=== PATIENT | male | born 1960 | race Caucasian/White ===

== ENCOUNTER 2021-05-12 03:53 | Emergency (ER) | payer OTHER, SELFPAY ==
[2021-05-12 03:58] VITALS: BP 139/83; PULSE 74; RESP 18; TEMP 36.3; O2SAT 99
--- NOTE | 2021-05-12 04:49 | ED.GENADULT ---
HPI - General Adult General Chief complaint: Skin/Abscess/Foreign Body Stated complaint: right finger insect bite Time Seen by Provider: 05/12/21 04:49 History of Present Illness HPI narrative: Patient 60-year-old gentleman who presents the emergency department chief complaint of insect bite to right middle finger. Patient reports he was outside working in the yard felt something land on his finger and sticking his finger. Patient reports he had several small bumps that appeared reports that they are itching terribly and noticed that he has redness on the volar aspect of his right middle finger. Patient states it hurts whenever he moves it reports improved with rest patient states that has had no purulent drainage from the area noticed has had several other spots on his body that are as though they are a welt and itching. Related Data Allergies Allergy/AdvReac Type Severity Reaction Status Date / Time No Known Allergies Allergy Verified 05/12/21 04:02 Review of Systems Review of Systems: A 10 system review of systems was completed on the patient and is negative except for what is stated in the HPI. Nursing and ancillary documentation was reviewed. [facility] Past Medical History Medical History BPH (benign prostatic hyperplasia) Erectile dysfunction HLD (hyperlipidemia) HTN (hypertension) IFG (impaired fasting glucose) Family History Family History Father Family history of alcoholism Other Hypertension Social History Social History Smoking status: Former smoker Tobacco type: cigarettes Second hand tobacco smoke exposure: No Smoking end date: 10/11/02 Alcohol intake: current Substance use: never Substance use type: does not use Gender identity (if verbalized by the patient): Male Exam Narrative: GENERAL: Well-appearing, well-nourished, and in no acute distress. HEAD: Normocephalic, atraumatic. EYES: PERRLA and EOMI. ENT: Nares clear, no rhinorrhea or epistaxis. Mucous membranes moist. NECK: Supple. CHEST: Clear to auscultation. No respiratory distress. HEART: Regular rate and rhythm. No murmur heard. Normal peripheral pulses. ABDOMEN: Soft, nontender, nondistended, normal active bowel sounds. EXTREMITIES: Normal range of motion. No edema. There is swelling present on the volar aspect of the right middle finger in the proximal phalanx there are several small red bumps there are patches of urticaria present on the volar aspect of the right forearm SKIN: Warm, dry, no rash. NEURO: No focal deficits. Alert and oriented x3. PSYCH: Normal mood and affect. Course Vital Signs Vital signs: Vital Signs Temperature 36.3 C L 05/12/21 03:58 Pulse Rate 74 05/12/21 03:58 Respiratory Rate 18 05/12/21 03:58 Blood Pressure 139/83 05/12/21 03:58 Pulse Oximetry 99 05/12/21 03:58 Temperature 36.3 C L 05/12/21 03:58 Pulse Rate 74 05/12/21 03:58 Respiratory Rate 18 05/12/21 03:58 Blood Pressure 139/83 05/12/21 03:58 Pulse Oximetry 99 05/12/21 03:58 Medical Decision Making Vital Signs Vital Signs: Vital Signs Temperature 36.3 C L 05/12/21 03:58 Pulse Rate 74 05/12/21 03:58 Respiratory Rate 18 05/12/21 03:58 Blood Pressure 139/83 05/12/21 03:58 Pulse Oximetry 99 05/12/21 03:58 Temperature 36.3 C L 05/12/21 03:58 Pulse Rate 74 05/12/21 03:58 Respiratory Rate 18 05/12/21 03:58 Blood Pressure 139/83 05/12/21 03:58 Pulse Oximetry 99 05/12/21 03:58 Discharge Plan Discharge Clinical Impression: Insect bite Qualifiers: Encounter type: initial encounter Site of insect bite: finger Finger: middle finger Laterality: right Qualified Code(s): S60.462A - Insect bite (nonvenomous) of right middle finger, initial encounter Allergic reaction Qualifiers:
[2021-05-12] MEDS: methylPREDNISolone SOD SUCC 125 MG VIAL IM (05:14)
[2021-05-12] MEDS: CLINDAMYCIN HCL 150 MG CAP 300 MG PO (05:14)
[2021-05-12] MEDS: diphenhydrAMINE HCl INJ 50 MG/ML VIAL 25 MG IM (05:14)
[2021-05-12] MEDS: FAMOTIDINE 20 MG TABLET PO (05:14)
== END 2021-05-12 05:25 | disposition home or self-care (01) ==
PROVIDERS: Emergency Provider Emergency Medicine; PCP Family Medicine
DX: S60.462A Insect bite (nonvenomous) of right middle finger, initial encounter (principal); T78.40XA Allergy, unspecified, initial encounter; N40.0 Benign prostatic hyperplasia without lower urinary tract symptoms; E78.5 Hyperlipidemia, unspecified; I10 Essential (primary) hypertension; Z87.891 Personal history of nicotine dependence; W57.XXXA Bitten or stung by nonvenomous insect and other nonvenomous arthropods, initial encounter
CPT/HCPCS: 96372; 99284; A9270; J1200; J2930

== ENCOUNTER → 2022-07-10 10:52 | Outpatient (CLI) | payer OTHER, SELFPAY ==
--- NOTE | ~2022-07-10 | XR_ITS ---
EXAMINATION: XR heel RT min 2V INDICATION: Right foot pain TECHNIQUE: Two views of the right heel are obtained. COMPARISON: None available FINDINGS: Bone alignment is normal. There is no fracture. A plantar calcaneal enthesophyte is noted. There is mild osteoarthritis of the midfoot. IMPRESSION: 1. No acute osseous abnormality. Reviewed, dictated and finalized at location A.
--- NOTE | ~2022-07-10 | XR_ITS ---
EXAMINATION: XR foot RT min 3V DATE: 07/10/2022 11:27 INDICATION: Right foot pain TECHNIQUE: Dorsoplantar, lateral, and 2 oblique views of the right foot were obtained. COMPARISON: None. FINDINGS: Bone alignment is normal. There is no fracture. There is mild osteoarthritis of the midfoot and multiple interphalangeal joints. A plantar calcaneal enthesophyte is noted. The soft tissues are unremarkable.. IMPRESSION: 1. No acute osseous abnormality. Reviewed, dictated and finalized at location A.
--- NOTE | ~2022-07-10 | XR_ITS ---
XR knee LT 3V 07/10/2022 11:27 Indication: Right knee pain Procedure: 3 views right knee Comparison: No prior studies for comparison. Findings: No fracture, subluxation or dislocation. No significant joint effusion. No erosive changes. No significant joint space narrowing. There is anatomic alignment. Impression: 1: No significant bone or joint abnormality. Reviewed, dictated and finalized at location B. Impression: 1: No significant bone or joint abnormality.
--- NOTE | ~2022-07-10 | XR_ITS ---
XR knee RT 3V 07/10/2022 11:27 Indication: Right knee pain Procedure: 3 views right knee Comparison: No prior studies for comparison. Findings: There is tricompartment osteoarthritis, most advanced in the medial joint space. No fractur e or traumatic malalignment. Small joint effusion. No foreign bodies. Impression: 1: Tricompartment compartment osteoarthritis, most advanced in the medial compartment. Reviewed, dictated and finalized at location B. Impression: 1: Tricompartment compartment osteoarthritis, most advanced in the medial grey rtment.
== END ==
PROVIDERS: PCP Family Medicine; Visit Provider Physician Assistant
DX: M79.671 Pain in right foot (principal); M25.562 Pain in left knee; M25.561 Pain in right knee; M17.11 Unilateral primary osteoarthritis, right knee
CPT/HCPCS: 73562; 73630; 73650

== ENCOUNTER 2022-12-04 11:00 | Outpatient (RCR) | payer OTHER, SELFPAY ==
--- NOTE | 2022-11-05 18:00 | PTOPEVAL1 ---
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 The knee has cause him to have severe pain along with it giving out on him and causing multiple falls the last time 2 weeks ago. He has received injections and has had recommendations from orthopedic doctors for a replacement, but reports he does not want to do that at this time. Main issues are walking and stairs. The foot he figures is just from compensating for the knee. Clinical Summary Dariel is a 62 year old male coming into the clinic for R knee and foot pain. Patient has S/S of DJD of the R knee including decreased weakness in the quads and range of motion. Patient also has S/S of plantar fascitis of the R foot and weakness in his hips. Recommend physical therapy to strengthen his VIN hips, R knee along with manual therapy and modalities to work on pain control and the R foot. These treatments will address the objective and functional deficits as defined above. The patient will be advanced safely and appropriately in order for the patient to progress towards his/her prior level of function. Additional exercises will be introduced and as well as a comprehensive home exercise program upon discharge, if needed, ?to ensure carryover of functional gains achieved in the clinic. This treatment plan has been reviewed and agreement upon by the patient.
--- NOTE | 2022-12-04 11:41 | PTOPDC ---
Assessment and note entered by Shivam Ramirez, PT Evaluation Information Assessment Status Discharge Diagnosis Pain in R knee and R foot Onset Chronic Subjective Information Patient reports that the pain will diminish for about an hour after therapy, but then once the foot and knee stiffen up again he will be in pain. He feels like he has given therapy a shot and that the issue is chronic and that will not be solved by therapy. Reported Pain Level Pain Score 8,8: Self Report Assessment PT Clinical Summary Dariel is a 62 year old male coming into the [facility] for R knee and foot pain. Patient attended 6 visits and met his R quad strength, but otherwise did not meet any other goals. At this time recommend discontinuation of skilled physical therapy secondary to no decrease in pain and musculoskeletal seem chronic in nature where physical therapy probably would not be able to significantly change that. Plan of Care PT Services Indicated No Treatment Frequency and discharged from skilled physical therapy Duration
== END 2022-12-04 12:55 | disposition home or self-care (01) ==
LOC: ANHPT 11:00
PROVIDERS: PCP Family Medicine; Visit Provider Physician Assistant
DX: M25.561 Pain in right knee (principal); M79.671 Pain in right foot
CPT/HCPCS: 97035; 97110; 97140; 97161

== ENCOUNTER 2024-11-21 13:15 | Emergency (ER) | payer OTHER, SELFPAY ==
[2024-11-21] VITALS (10 sets, daily range): BP systolic 102–132; BP diastolic 48–93; PULSE 80–100; RESP 16–25; TEMP 37.3–37.9; O2SAT 93–98
--- NOTE | ~2024-11-21 | XR_ITS ---
EXAMINATION: XR chest 2V DATE: 11/21/2024 13:43 INDICATION: Chest pain. TECHNIQUE: Frontal and lateral views of the chest were obtained. COMPARISON: Chest single view 04/15/2015, CT abdomen and pelvis 04/15/2015 FINDINGS: There are airspace opacities in right middle lobe and left upper lobe, consistent with pneu monia. No pleural effusion or pneumothorax. The heart size is normal. IMPRESSION: 1. Airspace opacities in right middle lobe and left upper lobe, consistent with pneumonia. Reviewed, dictated and finalized at location A. S AND DIAL INSPECTOR
--- NOTE | 2024-11-21 13:17 | ECG_ITS ---
Test Date: 2024-11-21 13:21:33 Measurements Intervals [place] Rate: 100 P: 21 CA: 167 QRS: -29 QRSD: 99 T: 55 QT: 346 QTc: 447 Interpretive Statements SINUS TACHYCARDIA WITH SINUS ARRHYTHMIA INCOMPLETE RIGHT BUNDLE BRANCH BLOCK BORDERLINE R WAVE PROGRESSION, ANTERIOR LEADS BASELINE ARTIFACT- I, II, III, AVR, AVL, V1-V3, V5-V6 ABNORMAL ECG No previous ECG available for comparison Electronically Signed On 11-21-2024 13:29:39 [employer] SERVIC[employer] by Neptali Perez D.O.
[2024-11-21 13:36] LABS: Basophils Percent Auto 0.1 % (0.2-1.2); Hematocrit 48.4 % (42.0-52.0); Immature Granulocyte Absolute 0.05 K/mm3 (0.00-0.031); Immature Granulocyte Percent A 0.4 % (0-0.5); Lymphocytes Absolute Auto 0.36 K/mm3 (0.9-3.2); Lymphocytes Percent Auto 2.6 % (18.3-44.2); Mean Corpuscular HGB Conc 33.1 g/dl (32-36); Mean Corpuscular Hemoglobin 28.4 pg (26-34); Mean Corpuscular Volume 85.8 fl (80-100); Mean Platelet Volume 9.7 fl (7.4-10.4); Monocytes Absolute Auto 0.5 K/mm3 (0.1-0.6); Monocytes Percent Auto 3.6 % (2.6-8.5); Neutrophils Absolute Auto 12.8 K/mm3 (1.3-6.7); Neutrophils Percent Auto 93.3 % (45.5-73.1); Platelet Count Result 176 k/mm3 (150-375); Red Blood Count 5.64 M/mm3 (4.6-6.20); Red Cell Distribution Width 13.4 % (11.5-14.5); White Blood Count 13.8 K/mm3 (4.5-10.0)
[2024-11-21 13:47] LABS: Prothrombin Time 13.3 Seconds (11.1-14.7)
[2024-11-21 13:48] LABS: Partial Thromboplastin Time 29.7 Seconds (22.3-36.8)
[2024-11-21 13:49] LABS: Alanine Aminotransferase 21 U/L (6-50); Alkaline Phosphatase 74 U/L (38-126); Anion Gap 15 mmol/L (4-12); Aspartate Amino Transferase 24 U/L (17-59); Bilirubin,Total 0.8 mg/dL (0.2-1.3); Blood Urea Nitrogen 14 mg/dL (9-20); Calcium 8.2 mg/dL (8.4-10.2); Carbon Dioxide 18 mmol/L (22-30); Chloride 101 mmol/L (98-107); Estimated CRCL calculation 143 ml/min; Estimated Glomerular Filt Rate > 60; Glucose 148 mg/dL (65-110); Lipase 27 U/L (23-300); Potassium 3.8 mmol/L (3.4-5.0); Sodium 134 mmol/L (137-145)
[2024-11-21 13:59] LABS: Troponin I 0.019 ng/mL (0.000-0.034)
--- NOTE | 2024-11-21 15:54 | ED.CHESTPAIN ---
HPI - Chest Pain General Chief Complaint: Chest Pain <Danielle Miguel PA-C - Last Filed: 11/21/24 16:08> Stated Complaint: chest pain/dyspnea, N/V/D <Danielle Miguel PA-C - Last Filed: 11/21/24 16:08> Time Seen by Provider: 11/21/24 15:54 <Danielle Miguel PA-C - Last Filed: 11/21/24 16:08> Focused HPI: Patient is a 64 y/o male, with PMH of HTN, who presents to the ED via EMS with c/o CP. Patient reports he has been sick for the past 1 week with productive cough with dark brown phlegm, chest congestion. Reports nausea with decreased PO intake for the past 3 days. Developed L sided CP this morning. Worse with movement/exertion. Associated with SOB. EMS was called. Was given fentanyl en route to the ED by EMS with improvement of CP. States it is beginning to return. Denies previous hx of cardiac issues. Denies known fevers. GENERAL: Well-appearing, morbidly obese with BMI of 46.6, and in no acute distress. HEAD: Normocephalic, atraumatic. CHEST: No respiratory distress. Rhonchi in bases bilaterally. No wheezing HEART: Regular rate and rhythm.? NEURO: ?Alert and oriented x3. Patient screened in triage and initial orders placed.? ?Additional care and disposition to be based upon?diagnostic testing and treatment. <Danielle Miguel PA-C - Last Filed: 11/21/24 16:08> Source: patient <Danielle Miguel PA-C - Last Filed: 11/21/24 16:08> Mode of arrival: EMS <Danielle Miguel PA-C - Last Filed: 11/21/24 16:08> Limitations: no limitations <COBY Mcclure Last Filed: 11/21/24 16:08> History of Present Illness HPI narrative: Agree with the HPI as described above. <Yariel Yi MD - Last Filed: 11/21/24 20:16> Related Data Allergies/Adverse Reactions: Allergies Allergy/AdvReac Type Severity Reaction Status Date / Time [id number] Reductase AdvReac Mild body aches Verified 10/24/24 08:52 Inhibitor <Danielle Miguel PA-C - Last Filed: 11/21/24 16:08> Review of Systems Review of Systems: As reviewed above in HPI <Yariel Yi MD - Last Filed: 11/21/24 20:16> [facility] Past Medical History Medical History: Medical History Anxiety Left knee DJD Right knee DJD BPH (benign prostatic hyperplasia) Erectile dysfunction IFG (impaired fasting glucose) HLD (hyperlipidemia) HTN (hypertension) <Danielle Miguel PA-C - Last Filed: 11/21/24 16:08> Surgical History Surgical History: Surgical History H/O: vasectomy H/O shoulder surgery <Danielle Miguel PA-C - Last Filed: 11/21/24 16:08> Family History Family History: Family History Father Family history of alcoholism Unknown Arthritis Lupus Cerebrovascular accident Other Hypertension <COBY Mcclure Last Filed: 11/21/24 16:08> Social History Social History: Social History Social History: Spouse Smoking status: Current every day smoker Tobacco type: cigarettes and cigars Second hand tobacco smoke exposure: No Smoking end date: 10/11/02 Alcohol intake: current Alcohol use details: Rarely Substance use: never Substance use type: does not use Do You Feel Safe in your Home?: Yes Lack of Transportation: No Lack of Food: Never True Current Housing: I Have Housing Concerned About Future Housing: No Difficulty Paying Gas/Electric Bills: No Difficulty Paying for Meds: No Currently Unemployed: No Education: Decline to Answer Difficulty w/ Childcare or Family Care: No Living arrangements: with family Occupation/Education: occupation 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 HEAD: [Normocephalic, atraumatic.] EYES: [PERRLA and EOMI.] ENT: Nares clear, no rhinorrhea or epistaxis. Mucous membranes moist. NECK: Supple. CHEST: Coarse rhonchorous bibasilar breath sounds without any wheezing or respiratory distress. HEART: [Regular rate and rhythm]. No murmur heard. [Normal peripheral pulses.] ABDOMEN: [Soft, nondistended], [nontender], [No rigidity or guarding] EXTREMITIES: Normal range of motion. [No edema.] SKIN: Warm, dry, no rash. NEURO: [No focal deficits]. Alert and oriented [x3.] PSYCH: [Normal mood and affect.] <Yariel Yi MD - Last Filed: 11/21/24 20:16> Course Vital Signs Vital signs: Vital Signs Temperature 37.9 C H 11/21/24 13:14 Pulse Rate 100 11/21/24 13:14 Respiratory Rate 20 11/21/24 13:14 Blood Pressure 103/55 L 11/21/24 13:14 Pulse Oximetry 93 11/21/24 13:14 Oxygen Delivery Room Air 11/21/24 13:14 Temperature 37.3 C 11/21/24 20:09 Pulse Rate 87 11/21/24 20:02 Respiratory Rate 16 11/21/24 20:02 Blood Pressure 102/68 11/21/24 20:02 Pulse Oximetry 94 11/21/24 20:02 Oxygen Delivery Room Air 11/21/24 18:01 <Danielle Miguel PA-C - Last Filed: 11/21/24 16:08> Vital Signs Temperature 37.9 C H 11/21/24 13:14 Pulse Rate 100 11/21/24 13:14 Respiratory Rate 20 11/21/24 13:14 Blood Pressure 103/55 L 11/21/24 13:14 Pulse Oximetry 93 11/21/24 13:14 Oxygen Delivery Room Air 11/21/24 13:14 Temperature 37.3 C 11/21/24 20:09 Pulse Rate 87 11/21/24 20:02 Respiratory Rate 16 11/21/24 20:02 Blood Pressure 102/68 11/21/24 20:02 Pulse Oximetry 94 11/21/24 20:02 Oxygen Delivery Room Air 11/21/24 18:01 <Yariel Yi MD - Last Filed: 11/21/24 20:16> MDM - Chest Pain MDM Narrative Medical decision making narrative: MSE by HERNANDO in triage. <Danielle Miguel PA-C - Last Filed: 11/21/24 16:08> MSE by HERNANDO in triage. 64-year-old pleasant male presenting to the emergency room with chief complaint of chest pain shortness a breath as well as productive cough. Was otherwise in his normal state of health previous to last week it does have sick contacts at home. He has coarse rhonchorous breath sounds bilaterally, no wheezing or respiratory distress. Borderline febrile with a temperature 37.9? in triage but saturating well on room air without any tachycardia or blood pressure elevation. Cardiac workup was ordered given his age and risk factors with morbid obesity. Considerations presently are for upper respiratory infection, pneumonia, pleurisy, bronchitis, ACS, pneumothorax, musculoskeletal chest pain. Workup ordered including serial troponin, EKG, chest x-ray, PT, PTT, D-dimer. COVID swabs were obtained and he was given Tylenol for his borderline fever as well as Zofran and fluid bolus. Workup shows a leukocytosis of 13.8, normal hemoglobin, normal platelets. Electrolytes are largely within normal limits, normal renal function, normal glucose and hepatic function panel. Mildly elevated BNP of 492, troponin negative x2. Negative lipase. Negative viral panel. Chest x-ray shows airspace opacities in the right middle lobe and left upper lobe consistent with pneumonia. Patient was started on community-acquired coverage including Rocephin and doxycycline will be able to be sent home with prescriptions for doxycycline and Augmentin for dual coverage. D-dimer came back slightly elevated 0.88 however negative per years criteria does not need CT angiography especially with the better explanation being his and multifocal pneumonia evident on x-ray. Patient was frequent re-evaluated, resting comfortably without any tachycardia or hypoxia. Avoid was diagnosis with multifocal pneumonia and overall is safe and stable for discharge home given his well appearance, no oxygen requirements and will trial oral antibiotic therapy with outpatient follow-up closely. Patient comfortable with this plan of care and was stable for discharge. <Yariel Yi MD - Last Filed: 11/21/24 20:16> Medical Records Data Attestation: I reviewed the patient's medical records. <Yariel Yi MD - Last Filed: 11/21/24 20:16> Lab Data Attestation: I reviewed the patient's lab results. <Yariel Yi MD - Last Filed: 11/21/24 20:16> Result diagrams: 11/21/24 13:27 11/21/24 13:27 <Danielle Miguel PA-C - Last Filed: 11/21/24 16:08> Labs: Lab Results 11/21/24 11/21/24 11/21/24 Range/Units 13:27 16:07 18:13 WBC 13.8 H (4.5-10.0) K/mm3 RBC 5.64 (4.6-6.20) M/mm3 Hgb 16.0 (14.0-18.0) g/dL Hct 48.4 (42.0-52.0) % MCV 85.8 (80-100) fl MCH 28.4 (26-34) pg MCHC 33.1 (32-36) g/dl RDW 13.4 (11.5-14.5) % Plt Count 176 (150-375) k/mm3 MPV 9.7 (7.4-10.4) fl Immature Gran % (Auto) 0.4 (0-0.5) % Neut % (Auto) 93.3 H (45.5-73.1) % Lymph % (Auto) 2.6 L (18.3-44.2) % [place] % (Auto) 3.6 (2.6-8.5) % Eos % (Auto) 0.0 (0-4.4) % Baso % (Auto) 0.1 L (0.2-1.2) % Lymph # (Auto) 0.36 L (0.9-3.2) K/mm3 [place] # (Auto) 0.5 (0.1-0.6) K/mm3 Eos # (Auto) 0.0 (0-0.3) K/mm3 Baso # (Auto) 0.0 (0.0-0.1) K/mm3 Abs Immat Gran (auto) 0.05 H (0.00-0.031) K/mm3 Absolute Neuts (auto) 12.8 H (1.3-6.7) K/mm3 Absolute Nucleated RBC 0.000 (0.0-0.012) K/mm3 Nucleated RBC % 0.0 (0.0-0.2) % PT 13.3 (11.1-14.7) Seconds INR 1.0 APTT 29.7 (22.3-36.8) Seconds D-Dimer 0.88 H (<0.48) ug/mL Sodium 134 L (137-145) mmol/L Potassium 3.8 (3.4-5.0) mmol/L Chloride 101 (98-107) mmol/L Carbon Dioxide 18 L (22-30) mmol/L Anion Gap 15 H (4-12) mmol/L BUN 14 (9-20) mg/dL Creatinine 0.66 L (0.7-1.3) mg/dL Estim Creat Clear Calc 143 ml/min Estimated GFR > 60 (59 - ) Glucose 148 H (65-110) mg/dL Calcium 8.2 L (8.4-10.2) mg/dL Total Bilirubin 0.8 (0.2-1.3) mg/dL AST 24 (17-59) U/L ALT 21 (6-50) U/L Alkaline Phosphatase 74 (38-126) U/L Troponin I 0.019 0.020 (0.000-0.034) ng/mL NT-Pro-B Natriuret Pep 492 H (19.9-100) pg/mL Total Protein 7.0 (6.3-8.2) g/dL Albumin 4.0 (3.5-5.1) g/dL Lipase 27 (23-300) U/L Influenza A (RT-PCR) Negative (Negative) Influenza B (RT-PCR) Negative (Negative) RSV (RT-PCR) Negative (Negative) SARS-CoV-2 RNA (RT-PCR) Negative (Negative) 02/11/25 Range/Units 19:15 WBC (4.5-10.0) K/mm3 RBC (4.6-6.20) M/mm3 Hgb (14.0-18.0) g/dL Hct (42.0-52.0) % MCV (80-100) fl MCH (26-34) pg MCHC (32-36) g/dl RDW (11.5-14.5) % Plt Count (150-375) k/mm3 MPV (7.4-10.4) fl Immature Gran % (Auto) (0-0.5) % Neut % (Auto) (45.5-73.1) % Lymph % (Auto) (18.3-44.2) % [place] % (Auto) (2.6-8.5) % Eos % (Auto) (0-4.4) % Baso % (Auto) (0.2-1.2) % Lymph # (Auto) (0.9-3.2) K/mm3 [place] # (Auto) (0.1-0.6) K/mm3 Eos # (Auto) (0-0.3) K/mm3 Baso # (Auto) (0.0-0.1) K/mm3 Abs Immat Gran (auto) (0.00-0.031) K/mm3 Absolute Neuts (auto) (1.3-6.7) K/mm3 Absolute Nucleated RBC (0.0-0.012) K/mm3 Nucleated RBC % (0.0-0.2) % PT (11.1-14.7) Seconds INR APTT (22.3-36.8) Seconds D-Dimer (<0.48) ug/mL Sodium (137-145) mmol/L Potassium (3.4-5.0) mmol/L Chloride (98-107) mmol/L Carbon Dioxide (22-30) mmol/L Anion Gap (4-12) mmol/L BUN (9-20) mg/dL Creatinine (0.7-1.3) mg/dL Estim Creat Clear Calc ml/min Estimated GFR (59 - ) Glucose (65-110) mg/dL Calcium (8.4-10.2) mg/dL Total Bilirubin (0.2-1.3) mg/dL AST (17-59) U/L ALT (6-50) U/L Alkaline Phosphatase (38-126) U/L Troponin I 0.019 (0.000-0.034) ng/mL NT-Pro-B Natriuret Pep (19.9-100) pg/mL Total Protein (6.3-8.2) g/dL Albumin (3.5-5.1) g/dL Lipase (23-300) U/L Influenza A (RT-PCR) (Negative) Influenza B (RT-PCR) (Negative) RSV (RT-PCR) (Negative) SARS-CoV-2 RNA (RT-PCR) (Negative) <Danielle Miguel PA-C - Last Filed: 11/21/24 16:08> Lab Results 11/21/24 11/21/24 11/21/24 Range/Units 13:27 16:07 18:13 WBC 13.8 H (4.5-10.0) K/mm3 RBC 5.64 (4.6-6.20) M/mm3 Hgb 16.0 (14.0-18.0) g/dL Hct 48.4 (42.0-52.0) % MCV 85.8 (80-100) fl MCH 28.4 (26-34) pg MCHC 33.1 (32-36) g/dl RDW 13.4 (11.5-14.5) % Plt Count 176 (150-375) k/mm3 MPV 9.7 (7.4-10.4) fl Immature Gran % (Auto) 0.4 (0-0.5) % Neut % (Auto) 93.3 H (45.5-73.1) % Lymph % (Auto) 2.6 L (18.3-44.2) % [place] % (Auto) 3.6 (2.6-8.5) % Eos % (Auto) 0.0 (0-4.4) % Baso % (Auto) 0.1 L (0.2-1.2) % Lymph # (Auto) 0.36 L (0.9-3.2) K/mm3 [place] # (Auto) 0.5 (0.1-0.6) K/mm3 Eos # (Auto) 0.0 (0-0.3) K/mm3 Baso # (Auto) 0.0 (0.0-0.1) K/mm3 Abs Immat Gran (auto) 0.05 H (0.00-0.031) K/mm3 Absolute Neuts (auto) 12.8 H (1.3-6.7) K/mm3 Absolute Nucleated RBC 0.000 (0.0-0.012) K/mm3 Nucleated RBC % 0.0 (0.0-0.2) % PT 13.3 (11.1-14.7) Seconds INR 1.0 APTT 29.7 (22.3-36.8) Seconds D-Dimer 0.88 H (<0.48) ug/mL Sodium 134 L (137-145) mmol/L Potassium 3.8 (3.4-5.0) mmol/L Chloride 101 (98-107) mmol/L Carbon Dioxide 18 L (22-30) mmol/L Anion Gap 15 H (4-12) mmol/L BUN 14 (9-20) mg/dL Creatinine 0.66 L (0.7-1.3) mg/dL Estim Creat Clear Calc 143 ml/min Estimated GFR > 60 (59 - ) Glucose 148 H (65-110) mg/dL Calcium 8.2 L (8.4-10.2) mg/dL Total Bilirubin 0.8 (0.2-1.3) mg/dL AST 24 (17-59) U/L ALT 21 (6-50) U/L Alkaline Phosphatase 74 (38-126) U/L Troponin I 0.019 0.020 (0.000-0.034) ng/mL NT-Pro-B Natriuret Pep 492 H (19.9-100) pg/mL Total Protein 7.0 (6.3-8.2) g/dL Albumin 4.0 (3.5-5.1) g/dL Lipase 27 (23-300) U/L Influenza A (RT-PCR) Negative (Negative) Influenza B (RT-PCR) Negative (Negative) RSV (RT-PCR) Negative (Negative) SARS-CoV-2 RNA (RT-PCR) Negative (Negative) 11/21/24 Range/Units 19:15 WBC (4.5-10.0) K/mm3 RBC (4.6-6.20) M/mm3 Hgb (14.0-18.0) g/dL Hct (42.0-52.0) % MCV (80-100) fl MCH (26-34) pg MCHC (32-36) g/dl RDW (11.5-14.5) % Plt Count (150-375) k/mm3 MPV (7.4-10.4) fl Immature Gran % (Auto) (0-0.5) % Neut % (Auto) (45.5-73.1) % Lymph % (Auto) (18.3-44.2) % [place] % (Auto) (2.6-8.5) % Eos % (Auto) (0-4.4) % Baso % (Auto) (0.2-1.2) % Lymph # (Auto) (0.9-3.2) K/mm3 [place] # (Auto) (0.1-0.6) K/mm3 Eos # (Auto) (0-0.3) K/mm3 Baso # (Auto) (0.0-0.1) K/mm3 Abs Immat Gran (auto) (0.00-0.031) K/mm3 Absolute Neuts (auto) (1.3-6.7) K/mm3 Absolute Nucleated RBC (0.0-0.012) K/mm3 Nucleated RBC % (0.0-0.2) % PT (11.1-14.7) Seconds INR APTT (22.3-36.8) Seconds D-Dimer (<0.48) ug/mL Sodium (137-145) mmol/L Potassium (3.4-5.0) mmol/L Chloride (98-107) mmol/L Carbon Dioxide (22-30) mmol/L Anion Gap (4-12) mmol/L BUN (9-20) mg/dL Creatinine (0.7-1.3) mg/dL Estim Creat Clear Calc ml/min Estimated GFR (59 - ) Glucose (65-110) mg/dL Calcium (8.4-10.2) mg/dL Total Bilirubin (0.2-1.3) mg/dL AST (17-59) U/L ALT (6-50) U/L Alkaline Phosphatase (38-126) U/L Troponin I 0.019 (0.000-0.034) ng/mL NT-Pro-B Natriuret Pep (19.9-100) pg/mL Total Protein (6.3-8.2) g/dL Albumin (3.5-5.1) g/dL Lipase (23-300) U/L Influenza A (RT-PCR) (Negative) Influenza B (RT-PCR) (Negative) RSV (RT-PCR) (Negative) SARS-CoV-2 RNA (RT-PCR) (Negative) <Yariel Yi MD - Last Filed: 11/21/24 20:16> Imaging Data Attestation: I personally reviewed and interpreted this imaging study as follows: <Yariel Yi MD - Last Filed: 11/21/24 20:16> My impression: Impressions Chest X-Ray 11/21/24 13:43 IMPRESSION: 1. Airspace opacities in right middle lobe and left upper lobe, consistent with pneumonia. <Yariel Yi MD - Last Filed: 11/21/24 20:16> Discharge Plan Discharge Clinical Impression: Community acquired pneumonia, Chest pain, Multifocal pneumonia <Danielle Miguel PA-C - Last Filed: 11/21/24 16:08> Patient Disposition: Home, Self-Care <Danielle Miguel PA-C - Last Filed: 11/21/24 16:08> Condition: Stable <Danielle Miguel PA-C - Last Filed: 11/21/24 16:08> Instructions: Antibiotic Form, Doxycycline (By mouth), Amoxicillin/Clavulanate Potassium (By mouth), Community Acquired Pneumonia (DC) <Danielle Miguel PA-C - Last Filed: 11/21/24 16:08> Additional Instructions: You have a pneumonia in several parts of the lungs which is likely explaining your symptoms. Follow-up with regular doctor in complete her oral antibiotic course. If you exhibit recurrent or worsening shortness of breath or chest pain, new symptoms such as intractable fever, difficulty ambulating or any other concerns return to the emergency department for additional evaluation. Follow-up with your doctor outpatient on a short-term basis of possible. <Danielle Miguel PA-C - Last Filed: 11/21/24 16:08> Patient Language: Greek <Danielle Miguel PA-C - Last Filed: 11/21/24 16:08> Prescriptions: New doxycycline hyclate 100 mg capsule 100 mg PO BID 5 Days Qty: 10 0RF amoxicillin-pot clavulanate 875-125 mg tablet 1 tablet PO Q12H 7 Days Qty: 14 0RF No Action tadalafil [Cialis] 10 mg tablet 10 mg PO DAILY PRN (Reason: sexual activity) Qty: 14 0RF Rx Instructions: administer approximately 30min before sexual activity; do not use more than 1 dose per 24hrs testosterone cypionate 100 mg/mL oil 100 mg IM ONCE Qty: 10 0RF Rx Instructions: as a single dose losartan 50 mg tablet 50 mg PO DAILY Qty: 30 1RF duloxetine 30 mg capsule,delayed release(DR/EC) 90 mg PO DAILY Qty: 30 0RF tramadol 50 mg tablet 50 mg PO Q8H PRN (Reason: pain) Qty: 20 0RF tamsulosin [Flomax] 0.4 mg capsule 0.8 mg PO DAILY Qty: 180 2RF benzonatate 100 mg capsule 100 - 200 mg PO TID PRN (Reason: cough) Qty: 60 0RF Rx Instructions: Take 1 to 2 caps (100 to 200 mg) TID prn for cough. Max 600 mg/day <Danielle Miguel PA-C - Last Filed: 11/21/24 16:08> Follow-up/Referrals: PHYSICIAN NOT ON STAFF,NONSTAFF [Non-Staff] - <Danielle Miguel PA-C - Last Filed: 11/21/24 16:08> Time of Disposition: 19:41 <Danielle Miguel PA-C - Last Filed: 11/21/24 16:08> 19:41 <Yariel Yi MD - Last Filed: 11/21/24 20:16>
--- NOTE | 2024-11-21 15:56 | ECG_ITS ---
Test Date: 2024-11-21 15:58:46 Measurements Intervals [place] Rate: 100 P: 16 GA: 167 QRS: -28 QRSD: 97 T: 54 QT: 328 QTc: 423 Interpretive Statements SINUS TACHYCARDIA WITH SINUS ARRHYTHMIA INCOMPLETE RIGHT BUNDLE BRANCH BLOCK BORDERLINE R WAVE PROGRESSION, ANTERIOR LEADS BASELINE ARTIFACT- I, III, AVR, AVL, V2, V4-V6 BORDERLINE ECG NO PRIOR ECG FOR COMPARISON Electronically Signed On 11-21-2024 20:04:49 [employer]ER by Neptali Perez D.O.
--- OUTSIDE RECORDS SUMMARY | 2024-11-21 16:25 | XMS_ITS | Clinical Summary ---
Author Organization [facility] Address [address] [place] [id number] Care Team Providers Care Director Radio News Name Role Phone Erik Perla MD Primary Care Provider Allergies No known active allergies Medications DULoxetine DR (CYMBALTA) 30 mg capsule Take 1 capsule (30 mg total) by mouth daily [address] (CYMBALTA) 60 mg capsule Take 1 capsule (60 mg total) by mouth daily 4 Active finasteride (PROSCAR) 5 mg tablet TAKE ONE TABLET BY MOUTH ONCE A DAY FOR BENIGN PROSTATIC HYPERPLASIA SWALLOW WHOLE, DO NOT CRUSH, SPLIT, OR CHEW. 3 12/17/19 25 Active hydroCHLOROthia zide (MICROZIDE) 12.5 mg capsule TAKE ONE CAPSULE BY MOUTH ONCE A DAY FOR HIGH BLOOD PRESSURE 4 12/17/19 25 Active lisinopriL (PRINIVIL,ZESTR IL) 40 mg tablet Take 1 tablet (40 mg total) by mouth 4 Active BD Luer-Raiza Syringe 3 mL 21 gauge x 1 1/2 syringe as directed 4 Active tadalafiL (CIALIS) 5 mg tablet Take 1 tablet (5 mg total) by mouth daily 4 Active tamsulosin (FLOMAX) 0.4 mg extended release capsule 4 Active testosterone cypionate (DEPO-TESTOTERO NE) 200 mg/mL injection ADMINISTER 0.5 ML IN THE MUSCLE 1 TIME A WEEK 11/08/202 4 Active Active Problems Problem Noted Date Diagnosed Date Benign prostatic hyperplasia with urinary obstru ction 09/15/2024 Hyperlipidemia 09/15/2024 Hypertension 09/15/2024 Obesity 09/15/2024 Posttraumatic stress disorder 09/15/2024 Prediabetes 09/15/2024 Encounters Date Type Department Care Team Description 09/15/2024 11:30 AM [facility] Ancillary Procedure Radiology - [address] [facility] [address] [place] [id number] Acute pain of right knee 09/15/2024 11:00 AM [facility] Office Visit [facility] Orthopaedic Surgery [address] [facility] [address] [place] [address] Eliza Pierce PA Acute pain of right knee (Primary Dx); Right knee pain, unspecified chronicity; Primary osteoarthritis of right knee from Last 3 Months Social History Tobacco Use Types Packs/Day Years Used Date Smoking Tobacco: Never Tobacco Cessation:Counseling Given: Not Answered Sex and Gender Information Value Date Recorded Sex Assigned at Not on file Legal Sex Male 7:01 PM [employer] Gender Identity Not on file Sexual Orientation Not on file Obstetrics History Last Filed Vital Signs Vital Sign Reading Time Taken Comments Blood Pressure - - Pulse - - Temperature - - Respiratory Rate - - Oxygen Saturation - - Inhaled Oxygen Concentration - - Weight 153.8 kg (339 lb) 09/15/2024 11:26 AM [facility] Height 181 cm (5' 11.26 ) 09/15/2024 11:26 AM CS T Body Mass Index 46.94 09/15/2024 11:26 AM [facility] Plan of Treatment Health Maintenance Due Date Last Done Comments Colon Cancer Screening-Colonoscopy 1961 Depression Screening 1961 Hepatitis C Screening 1961 Prostate Cancer Screening-PSA 1961 DTaP/Tdap/Td Vaccine (1 - Tdap) 1972 Hepatitis B Screening 1979 Regular Well Visit/Exam 18-64 1979 Zoster Vaccine (1 of 2) 2011 Influenza Vaccine (#1) 2024 Pneumococcal vaccine <65 Aged Out No longer eligible based on patient's age to complete this topic Procedures Procedure Name Priority Date/Time Associated Diagnosis Comments XR KNEE RIGHT 4 OR MORE VIEWS Schedule Routine, Read Routine (OP Routine) 09/15/2024 11:20 AM [facility] Acute pain of right knee from Last 3 Months Results * XR Knee Right 4 or More Views (09/15/2024 11:20 AM [employer]) Anatomical Region Laterality Modality Lower Extremities, Knee Right Computed Radiography 09/15/2024 12:4 7 PM [employer] Impressions 09/15/2024 12:47 PM [employer] 1. Moderate to severe medial compartment predominant tricompartmental right knee osteoarthritis. Electronically signed by: Beny Frederick M.D. Narrative 09/15/2024 12:47 PM [facility] EXAMINATION: XR KNEE RIGHT 4 OR MORE VIEWS HISTORY: right knee pain FINDINGS: 4 view examination of the right knee is read without comparison. There is moderate to severe medial compartment predominant tricompartmental osteoarthritis. Small joint effusion. No fracture or dislocation. Scattered vascular calcifications. Procedure Note Beny Casper MD - 09/15/2024 EXAMINATION: XR KNEE RIGHT 4 OR MORE VIEWS HISTORY: right knee pain FINDINGS: 4 view examination of the right knee is read without comparison. There is moderate to severe medial compartment predominant tricompartmental osteoarthritis. Small joint effusion. No fracture or dislocation. Scattered vascular calcifications. IMPRESSION: 1. Moderate to severe medial compartment predominant tricompartmental right knee osteoarthritis. Electronically signed by: Beny Frederick M.D. Eliza MALCOLM IMG XR PROCEDURES Fi nal Result from Last 3 Months Insurance [facility] Care Teams Director Radio News Relationship Specialty Start Date End Date Erik Perla MD [address] [facility] [address] [place] [address] PCP - General Family Medicine 07/10/24
--- OUTSIDE RECORDS SUMMARY | 2024-11-21 16:25 | XMS_ITS | Patient Health Record ---
Author Organization [facility] As [facility] Address [address] [place] [address] Care Team Providers Care Tower Attendant Name Role Phone ALFREDITO KEVIN PA-C Primary Care Provider Clarita Billings Unavailable [phone] Allergies Allergen (clinical drug ingredient) Drug/Non Drug Allergy documented on EMR Reaction Allergy Type Onset Date Status Substance with 6-ytezxqk-1-methylgluta ryl-coenzyme A reductase inhibitor mechanism of action (substance) Statins Unknown Drug Allergy Active Results Component Value Reference Range Notes UDT Reviewed date:06/19/2024 01:31:55 PM Interpretation: Performing Lab: Notes/Report: THC P 0 - 50 ng/ml Cocaine N 0 - 300 ng/ml Amphetamine N 0 - 1000 ng/ml Buprenorphine (BUP) N 0 - 10 ng/ml Secobarbital (Bar) N 0 - 300 ng/ml Oxazepam (BZO) N 0 - 300 ng/ml 4-neinuhtjsb-1,8-ltpwhuts-3,3-diphenylpyrrolidine (JAVI P) N 0 - 300 ng/ml Methamphetamine (MET) N 0 - 1000 ng/ml Methylenedioxymethamphetamine (MDMA) N 0 - 500 ng/ml Morphine (MOP 300/[id number]) N 0 - 300 ng/ml Methadone (MTD) N 0 - 300 ng/ml Phencyclidine (PCP) N 0 - 25 ng/ml Propoxyphene (PPX) N 0 - 300 ng/ml Nortriptyline (TCA) N 0 - 1000 ng/ml Oxycodone N 0 - 300 ng/ml Reason For Referral No Information Medications Medication SIG (Take, Route, Frequency, Duration) Notes Start Date End Date Status Finasteride 5 MG Oral for 90 Days Not-Taking Kyzatrex 200 MG 1 capsule with food Orally Twice a day Active Tadalafil 5 MG TAKE 1 TABLET BY MOUTH DAILY Oral for 90 Days Active Lisinopril 40 MG TAKE 1 TABLET BY MOUTH DAILY Oral for 90 Days Active DULoxetine HCl 30 MG TAKE 1 CAPSULE BY MOUTH DAILY for 30 Active DULoxetine HCl 60 MG 1 capsule Orally Once a day for 90 days Active traMADol HCl 50 MG TAKE 1 TABLET BY MOUTH EVERY 8 HOURS NEEDED FOR PAIN Oral for 6 Days Active hydroCHLOROthiazide 12.5 MG Oral for 90 Days Active Tamsulosin HCl 0.4 MG TAKE 2 CAPSULES BY MOUTH DAILY Oral for 90 Days Active Social History Tobacco Use: Social History Observation Description Date Details (start date - stop date) Current some da y smoker 09/24/2021 - NA Sex Assigned At : Social History Observation Description Sex Assigned At Male Household Question Answer Notes Marital status: Number of adults in household: 2 Level of education: not finished college GED and some college Sexual History Question Answer Notes Had sex in the past 12 months (vaginal, oral, or anal)? Yes with Women only Tobacco Control (Standard) Question Answer Notes Tobacco use: Current some day smoker When did you start smoking? 09/24/2021 Additional Findings: Tobacco user Cigar smoker,P ipe smoker AUDIT-C (Standard) Question Answer Notes Did you have a drink contain ing alcohol in the past year? Yes How often did you have six o r more drinks on one occasion in the past year? 2 to 4 times a month (2 points) How many drinks did you have on a typical day when you were drinking in the past year? 3 or 4 drinks (1 point) How often did you have a dri nk containing alcohol in the past year? 2 to 4 times a month (2 points) Points 5 Interpretation Positive Problems Problem Type SNOMED Code ICD Code Onset Dates Problem Status W/U Status Risk Notes Problem 90591041 CATHERINE (generalized anxiety disorder) (F41.1) Active confirmed Problem 159437167 MDD (major depressive disorder), recurrent episode, moderate (F33.1) Active confirmed Problem 640252490 Chronic post-traumatic stress disorder (PTSD) (F43.12) Active confirmed Problem 48258492 Obstructive sleep apnea (G47.33) Active confirmed Problem 49142034 Unable to concentrate (R41.840) Active confirmed Vital Signs Heart Rate 79 /min 08/28/2024 Height-cm 179.07 cm 08/28/2024 Blood pressure diastolic 98 mm Hg 08/28/2024 Weight-kg 151.95 kg 08/28/2024 Height 70.5 in 08/28/2024 Blood pressure systolic 147 mm Hg 08/28/2024 Weight 335 lbs 08/28/2024 BMI 47.38 kg/m2 08/28/2024 Encounters Encounter Location Date Provider [facility] [address] [address] 06/19/2024 Clarita Fisher MDD (major depressiv e disorder), recurrent episode, moderate F33.1 ; CATHERINE (generalized anxiety disorder) F41.1 ; Chronic post-traumatic stress disorder (PTSD) F43.12 ; Obstructive sleep apnea G47.33 and Unable to concentrate R41.[address] [address] 07/17/2024 Clarita Fisher MDD (major depressiv e disorder), recurrent episode, moderate F33.1 ; CATHERINE (generalized anxiety disorder) F41.1 ; Chronic post-traumatic stress disorder (PTSD) F43.12 ; Obstructive sleep apnea G47.33 and Unable to concentrate R41.[address] [address] 08/28/2024 Clarita Fisher MDD (major depressiv e disorder), recurrent episode, moderate F33.1 ; CATHERINE (generalized anxiety disorder) F41.1 ; Chronic post-traumatic stress disorder (PTSD) F43.12 ; Obstructive sleep apnea G47.33 and Unable to concentrate R41.[address] [address] 09/11/2024 Clarita Fisher [address] [address] 09/11/2024 Clarita Fisher Assessments Encounter Date Diagnosis (ICD Code) Assessment Notes Treatment Notes Treatment Clinical Notes Section Notes 06/19/2024 CATHERINE (generalized anxiety disorder) (ICD-10 - F41.1) Generalized Anxiety Disorder: Care Instructions material was published, Learning About Generalized Anxiety Disorder material was published, Learning About Anxiety Disorders material was published, Learning About Transcranial Magnetic Stimulation (TMS) material was published Major depression- Add Cymbalta 30 mg daily for week then increase to 60 mg daily educated on all rx benefits, side effects, risk continue therapy Anxiety- Cymbalta PTSD- in therapy Unable to conentrate- discuss memory and mental health depression and anxiety and age, will work on stablize mood before test ADHD and may be more memory to be tested Sleep apnea- CPAP- see sleep provider 06/19/2024 MDD (major depressive disorder), recurrent episode, moderate (ICD-10 - F33.1) Preventing Depression From Coming Back: Care Instructions material was published, Learning About Depression material was published, Learning About How to Get Help During a Mental Health Crisis material was published, Learning About Depression Screening material was published, Seasonal Affective Disorder: Care Instructions material was published Major depression- Add Cymbalta 30 mg daily for week then increase to 60 mg daily educated on all rx benefits, side effects, risk continue therapy Anxiety- Cymbalta PTSD- in therapy Unable to conentrate- discuss memory and mental health depression and anxiety and age, will work on stablize mood before test ADHD and may be more memory to be tested Sleep apnea- CPAP- see sleep provider 07/17/2024 MDD (major depressive disorder), recurrent episode, moderate (ICD-10 - F33.1) Preventing Depression From Coming Back: Care Instructions material was published, Learning About Depression material was published, Learning About How to Get Help During a Mental Health Crisis material was published, Learning About Depression Screening material was published, Seasonal Affective Disorder: Care Instructions material was published Major depression- currently on Cymbalta 60 mg daily - mood improved on rx last month Will increase Cymbalta 90 mg daily in am for depression and anxiety educated on all rx benefits, side effects, risk continue therapy Anxiety- Cymbalta PTSD- in therapy Unable to conentrate- discuss memory and mental health depression and anxiety and age, will work on stablize mood before test ADHD and may be more memory to be tested Sleep apnea- CPAP- see sleep provider 08/28/2024 MDD (major depressive disorder), recurrent episode, moderate (ICD-10 - F33.1) Preventing Depression From Coming Back: Care Instructions material was published, Learning About Depression material was published, Learning About How to Get Help During a Mental Health Crisis material was published, Learning About Depression Screening material was published, Seasonal Affective Disorder: Care Instructions material was published Major depression- currently on Cymbalta 90 mg daily - mood improved on rx last month improved depression and anxiety educated on all rx benefits, side effects, risk continue therapy working in [facility] [place] - pain Anxiety- Cymbalta 90 mg daily PTSD- in therapy Unable to conentrate- discuss memory and mental health depression and anxiety and age, will work on stablize mood before test ADHD and may be more memory to be tested Sleep apnea- CPAP- see sleep provider 07/17/2024 CATHERINE (generalized anxiety disorder) (ICD-10 - F41.1) Generalized Anxiety Disorder: Care Instructions material was published, Learning About Generalized Anxiety Disorder material was published, Learning About Anxiety Disorders material was published, Learning About Transcranial Magnetic Stimulation (TMS) material was published Major depression- currently on Cymbalta 60 mg daily - mood improved on rx last month Will increase Cymbalta 90 mg daily in am for depression and anxiety educated on all rx benefits, side effects, risk continue therapy Anxiety- Cymbalta PTSD- in therapy Unable to conentrate- discuss memory and mental health depression and anxiety and age, will work on stablize mood before test ADHD and may be more memory to be tested Sleep apnea- CPAP- see sleep provider 08/28/2024 CATHERINE (generalized anxiety disorder) (ICD-10 - F41.1) Generalized Anxiety Disorder: Care Instructions material was published, Learning About Generalized Anxiety Disorder material was published, Learning About Anxiety Disorders material was published, Learning About Transcranial Magnetic Stimulation (TMS) material was published Major depression- currently on Cymbalta 90 mg daily - mood improved on rx last month improved depression and anxiety educated on all rx benefits, side effects, risk continue therapy working in [place] - pain Anxiety- Cymbalta 90 mg daily PTSD- in therapy Unable to conentrate- discuss memory and mental health depression and anxiety and age, will work on stablize mood before test ADHD and may be more memory to be tested Sleep apnea- CPAP- see sleep provider 06/19/2024 Chronic post-traumatic stress disorder (PTSD) (ICD-10 - F43.12) Post-Traumatic Stress Disorder (PTSD): Care Instructions material was published, Learning About PTSD After a Stay in the ICU material was published Major depression- Add Cymbalta 30 mg daily for week then increase to 60 mg daily educated on all rx benefits, side effects, risk continue therapy Anxiety- Cymbalta PTSD- in therapy Unable to conentrate- discuss memory and mental health depression and anxiety and age, will work on stablize mood before test ADHD and may be more memory to be tested Sleep apnea- CPAP- see sleep provider 06/19/2024 Obstructive sleep apnea (ICD-10 - G47.33) Sleep Apnea: Care Instructions material was published, Learning About Bilevel Positive Airway Pressure (BPAP) material was published, Heart Failure and Sleep Apnea: Care Instructions material was published Major depression- Add Cymbalta 30 mg daily for week then increase to 60 mg daily educated on all rx benefits, side effects, risk continue therapy Anxiety- Cymbalta PTSD- in therapy Unable to conentrate- discuss memory and mental health depression and anxiety and age, will work on stablize mood before test ADHD and may be more memory to be tested Sleep apnea- CPAP- see sleep provider 07/17/2024 Chronic post-traumatic stress disorder (PTSD) (ICD-10 - F43.12) Post-Traumatic Stress Disorder (PTSD): Care Instructions material was published, Learning About PTSD After a Stay in the ICU material was published Major depression- currently on Cymbalta 60 mg daily - mood improved on rx last month Will increase Cymbalta 90 mg daily in am for depression and anxiety educated on all rx benefits, side effects, risk continue therapy Anxiety- Cymbalta PTSD- in therapy Unable to conentrate- discuss memory and mental health depression and anxiety and age, will work on stablize mood before test ADHD and may be more memory to be tested Sleep apnea- CPAP- see sleep provider 08/28/2024 Chronic post-traumatic stress disorder (PTSD) (ICD-10 - F43.12) Post-Traumatic Stress Disorder (PTSD): Care Instructions material was published, Learning About PTSD After a Stay in the ICU material was published Major depression- currently on Cymbalta 90 mg daily - mood improved on rx last month improved depression and anxiety educated on all rx benefits, side effects, risk continue therapy working in [facility] [place] - pain Anxiety- Cymbalta 90 mg daily PTSD- in therapy Unable to conentrate- discuss memory and mental health depression and anxiety and age, will work on stablize mood before test ADHD and may be more memory to be tested Sleep apnea- CPAP- see sleep provider 08/28/2024 Obstructive sleep apnea (ICD-10 - G47.33) Sleep Apnea: Care Instructions material was published, Learning About Bilevel Positive Airway Pressure (BPAP) material was published, Heart Failure and Sleep Apnea: Care Instructions material was published Major depression- currently on Cymbalta 90 mg daily - mood improved on rx last month improved depression and anxiety educated on all rx benefits, side effects, risk continue therapy working in [facility] - pain Anxiety- Cymbalta 90 mg daily PTSD- in therapy Unable to conentrate- discuss memory and mental health depression and anxiety and age, will work on stablize mood before test ADHD and may be more memory to be tested Sleep apnea- CPAP- see sleep provider 07/17/2024 Obstructive sleep apnea (ICD-10 - G47.33) Sleep Apnea: Care Instructions material was published, Learning About Bilevel Positive Airway Pressure (BPAP) material was published, Heart Failure and Sleep Apnea: Care Instructions material was published Major depression- currently on Cymbalta 60 mg daily - mood improved on rx last month Will increase Cymbalta 90 mg daily in am for depression and anxiety educated on all rx benefits, side effects, risk continue therapy Anxiety- Cymbalta PTSD- in therapy Unable to conentrate- discuss memory and mental health depression and anxiety and age, will work on stablize mood before test ADHD and may be more memory to be tested Sleep apnea- CPAP- see sleep provider 06/19/2024 Unable to concentrate (ICD-10 - R41.840) Major depression- Add Cymbalta 30 mg daily for week then increase to 60 mg daily educated on all rx benefits, side effects, risk continue therapy Anxiety- Cymbalta PTSD- in therapy Unable to conentrate- discuss memory and mental health depression and anxiety and age, will work on stablize mood before test ADHD and may be more memory to be tested Sleep apnea- CPAP- see sleep provider 07/17/2024 Unable to concentrate (ICD-10 - R41.840) Major depression- currently on Cymbalta 60 mg daily - mood improved on rx last month Will increase Cymbalta 90 mg daily in am for depression and anxiety educated on all rx benefits, side effects, risk continue therapy Anxiety- Cymbalta PTSD- in therapy Unable to conentrate- discuss memory and mental health depression and anxiety and age, will work on stablize mood before test ADHD and may be more memory to be tested Sleep apnea- CPAP- see sleep provider 08/28/2024 Unable to concentrate (ICD-10 - R41.840) Major depression- currently on Cymbalta 90 mg daily - mood improved on rx last month improved depression and anxiety educated on all rx benefits, side effects, risk continue therapy working in [facility] [place] - pain Anxiety- Cymbalta 90 mg daily PTSD- in therapy Unable to conentrate- discuss memory and mental health depression and anxiety and age, will work on stablize mood before test ADHD and may be more memory to be tested Sleep apnea- CPAP- see sleep provider 06/19/2024 Other referral to the local chapter or national office of the Alzheimer's Association ( ; http://www.alz.o rg), the Alzheimer's Disease Education and Referral Center (ADEAR) ( ; http://www.omari.n ih.gov/Alzheimer s/), , Duloxetine Delayed Release Oral Capsule 30 mg (DULOXETINE - ORAL) material was published Major depression- Add Cymbalta 30 mg daily for week then increase to 60 mg daily educated on all rx benefits, side effects, risk continue therapy Anxiety- Cymbalta PTSD- in therapy Unable to conentrate- discuss memory and mental health depression and anxiety and age, will work on stablize mood before test ADHD and may be more memory to be tested Sleep apnea- CPAP- see sleep provider Plan Of Treatment Next Appt Details Provider Name:Clarita Natalia , 11/27/2024 09:00:00 AM, [address] [facility] [address], [facility] [address], [place], [address], Insurance Providers Payer Name Payer Address Payer Phone Subscriber Number Group Number Insured Name Patient Relationship to Insured Coverage Start Date Coverage End Date [facility] [address] [place] [address] [id number] Dariel Wade Self - patient is the insured Medical (General) History Medical History History ICD Code anxiety HLD HTN Past Psychiatric History: Anxiety Disord er,PTSD undefined abdominal aortic aneurysm: No atrial fibrillation: No chronic fatigue syndrome: No essential tremor: No hyperlipidemia: No hypertension: Yes Parkinson's disease: No restless leg syndrome: No stroke: No subdural hematoma: No type 1 diabetes mellitus: No type 2 diabetes mellitus: No vitamin B12 deficiency: No vitamin D deficiency: No Surgical History Surgery Date(Month/Year) left shoulder surgery 2007 vasectomy 1994 Hospitalization History Reason Date(Month/Year) left shoulder surgery 2007
--- OUTSIDE RECORDS SUMMARY | 2024-11-21 16:25 | XMS_ITS | Referral Summary ---
Author Organization [facility] Address [address] [place] [address] Care Team Providers Care Grades 1 Through 6 Teacher Name Role Phone Erik Perla MD Primary Care Provider Encounters Date Type Department Care Team Description 09/15/2024 11:30 AM PLUMBER SUPERVISOR Ancillary Procedure Radiology - [address] [place] [address] [address] [place] [address] Acute pain of right knee 09/15/2024 11:00 AM PLUMBER SUPERVISOR Office Visit [facility] Orthopaedic Surgery [address] [place] [address] [address] [place] [address] Eliza Pierce PA Acute pain of right knee (Primary Dx); Right knee pain, unspecified chronicity; Primary osteoarthritis of right knee from Last 3 Months Allergies No known active allergies Medications DULoxetine [...] IN THE MUSCLE 1 TIME A WEEK 4 Active Active Problems Problem Noted Date Diagnosed Date Benign prostatic hyperplasia with urinary obstru ction 09/15/2024 Hyperlipidemia 09/15/2024 Hypertension 09/15/2024 Obesity 09/15/2024 Posttraumatic stress disorder 09/15/2024 Prediabetes 09/15/2024 Social History Tobacco Use Types Packs/Day Years Used Date Smoking Tobacco: Never Tobacco Cessation:Counseling Given: Not Answered Sex and Gender Information Value Date Recorded Sex Assigned at Not on file Legal Sex Male 7:01 PM PLUMBER SUPERVISOR Gender Identity Not on file Sexual Orientation Not on file Last Filed Vital Signs Vital Sign Reading Time Taken Comments Blood Pressure - - Pulse - - Temperature - - Respiratory Rate - - Oxygen Saturation - - Inhaled Oxygen Concentration - - Weight 153.8 kg (339 lb) 09/15/2024 11:26 AM PLUMBER SUPERVISOR Height 181 cm (5' 11.26 ) 09/15/2024 11:26 AM CS T Body Mass Index 46.94 09/15/2024 11:26 AM PLUMBER SUPERVISOR Plan of Treatment Not on file Procedures Procedure Name Priority Date/Time Associated Diagnosis Comments XR KNEE RIGHT 4 OR MORE VIEWS Schedule Routine, Read Routine (OP Routine) 09/15/2024 11:20 AM PLUMBER SUPERVISOR Acute pain of right knee from Last 3 Months Results * XR Knee Right 4 or More Views (09/15/2024 11:20 AM PLUMBER SUPERVISOR) Anatomical Region Laterality Modality Lower Extremities, Knee Right Computed Radiography 09/15/2024 12:4 7 PM PLUMBER SUPERVISOR Impressions 09/15/2024 12:47 PM PLUMBER SUPERVISOR 1. Moderate to severe medial compartment predominant tricompartmental right knee osteoarthritis. Electronically signed by: Beny Frederick M.D. Narrative 09/15/2024 12:47 PM PLUMBER SUPERVISOR EXAMINATION: XR KNEE RIGHT 4 OR MORE [...] signed by: Beny Frederick M.D. Eliza MALCOLM IMDavid XR PROCEDURES Fi nal Result from Last 3 Months Insurance [facility] Care Teams Grades 1 Through 6 Teacher Relationship Specialty Start Date End Date Erik Perla MD [address] [facility] [address] [place] [address] PCP - General Family Medicine 07/10/24
--- OUTSIDE RECORDS SUMMARY | 2024-11-21 16:25 | XMS_ITS ---
Author Organization [facility] [employer] Address [address] [place] [address] Care Team Providers Care Clinical Support Associate Name Role Phone ALFREDITO KEVIN PA-C Primary Care Provider Clarita Billings Unavailable [phone] Allergies Allergen (clinical drug ingredient) Drug/Non Drug Allergy documented on EMR Reaction Allergy Type Onset Date Status Substance with 1-jcjcrds-7-methylgluta ryl-coenzyme A reductase inhibitor mechanism of action (substance) Statins Unknown Drug Allergy Active REASON FOR VISIT follow up increase Cymbalta Medications Medication SIG (Take, Route, Frequency, Duration) Notes Start Date End Date Status Tadalafil 5 MG TAKE 1 TABLET BY MOUTH DAILY Oral for 90 Days Active Lisinopril 40 MG TAKE 1 TABLET BY MOUTH DAILY Oral for 90 Days Active DULoxetine HCl 30 MG 1 capsule Orally Once a day for 90 days total 90 mg daily Active DULoxetine HCl 60 MG 1 capsule Orally Once a day for 90 days total 90 mg daily Active Tamsulosin HCl 0.4 MG TAKE 2 CAPSULES BY MOUTH DAILY Oral for 90 Days Active Finasteride 5 MG Oral for 90 Days Not-Taking Kyzatrex 200 MG 1 capsule with food Orally Twice a day Active DULoxetine HCl 30 MG TAKE 1 CAPSULE BY MOUTH DAILY for 30 Active traMADol HCl 50 MG TAKE 1 TABLET BY MOUTH EVERY 8 HOURS NEEDED FOR PAIN Oral for 6 Days Active hydroCHLOROthiazide 12.5 MG Oral for 90 Days Active Social History [...] month (2 points) Points 5 Interpretation Positive Vital Signs Blood pressure systolic 147 mm Hg 08/28/20 24 Blood pressure diastolic 98 mm Hg 024 Heart Rate 79 /min 08/28/2024 Height 70.5 in 08/28/2024 Weight 335 lbs 08/28/2024 BMI 47.38 kg/m2 08/28/2024 Height-cm 179.07 cm 08/28/2024 Weight-kg 151.95 kg 08/28/2024 Encounters Encounter Location Date Provider Diagnosis [facility] [employer] [address] [address] 08/28/2024 Clarita Fisher MDD (major depressiv e disorder), recurrent episode, moderate F33.1 ; CATHERINE (generalized anxiety disorder) F41.1 ; Chronic post-traumatic stress disorder (PTSD) F43.12 ; Obstructive sleep apnea G47.33 and Unable to concentrate R41.840 Assessments Encounter Date Diagnosis (ICD Code) Assessment Notes Treatment Notes Treatment Clinical Notes Section Notes 08/28/2024 MDD (major depressive disorder), recurrent episode, [...] effects, risk continue therapy working in [facility] Anxiety- Cymbalta 90 mg daily PTSD- in [...] side effects, risk continue therapy working in [facility] Anxiety- Cymbalta 90 mg daily PTSD- in [...] effects, risk continue therapy working in [facility] Anxiety- Cymbalta 90 mg daily PTSD- in [...] effects, risk continue therapy working in [facility] Anxiety- Cymbalta 90 mg daily PTSD- in [...] CPAP- see sleep provider Plan Of Treatment Medication Medication Name Sig Start Date Stop Date Notes DULoxetine HCl 30 MG 1 capsule Orally On ce a day for 90 days total 90 mg daily DULoxetine HCl 60 MG 1 capsule Orally On ce a day for 90 days total 90 mg daily Treatment Notes Assessment Notes MDD (major depressive disord er), recurrent episode, moderate Preventing Depression From Coming Back: Care Instructions material was published, Learning About Depression material was published, Learning About How to Get Help During a Mental Health Crisis material was published, Learning About Depression Screening material was published, Seasonal Affective Disorder: Care Instructions material was published CATHERINE (generalized anxiety disorder) Gener alized Anxiety Disorder: Care Instructions material was published, Learning About Generalized Anxiety Disorder material was published, Learning About Anxiety Disorders material was published, Learning About Transcranial Magnetic Stimulation (TMS) material was published Chronic post-traumatic stres s disorder (PTSD) Post-Traumatic Stress Disorder (PTSD): C are Instructions material was published, Learning About PTSD After a Stay in the ICU material was published Obstructive sleep apnea Sleep Apnea: Car e Instructions material was published, Learning About Bilevel Positive Airway Pressure (BPAP) material was published, Heart Failure and Sleep Apnea: Care Instructions material was published Next Appt Details Follow Up: 3 Months, Reason: f/u Cymbalta Provider Name:Clarita Fisher , 11/27/2024 09:00:00 AM, [address], [facility] [address], [place], [address], Progress Notes * Dariel DOWNS EDOB:[birth year] (64 yo M)Acc No.[id number]:08/28/2024 Patient: J TONDariel SALES Provider: Michelle FISHER PMHNP :1960 A ge:64 Y S ex:Male Date:08/28/2024 Address:[facility] [place] , [place] [address], [id number] Pcp:ALFREDITO KEVIN PAHorace Subjective: * Chief Complaints: * 1 . follow up increase Cymbalta. * HPI: D epression Screening: CATHERINE-7 (2018 Edition) F eeling nervous, anxious, or on edge?Several days, N ot being able to stop or control worrying S everal days, W orrying too much about different things S everal days, T rouble relaxing N early every day, B eing so restless that it is hard to sit still N ot at all, B ecoming easily annoyed or irritable S everal days, F eeling afraid as if something awful might happen N ot at all,?Total CATHERINE-7 Score 7 , I nterpretation of Total ( 5 to 9) Mild. C [place]-Suicide Severity Rating Scale: Suicide Risk (CSRS-screener) i n the past one month Have you wished you were or wished you could go to sleep and not wake up? N o, i n the past one month Have you actually had any thoughts of killing yourself? N o. D epression screening: PHQ-9 L ittle interest or pleasure in doing things M ore than half the days, F eeling down, depressed, or hopeless N ot at all, T rouble falling or staying asleep, or sleeping too much N early every day, F eeling tired or having little energy S everal days, P oor appetite or overeating N ot at all, F eeling bad about yourself or that you are a failure, or have let yourself or your family down N ot at all, T rouble concentrating on things, such as reading the newspaper or watching television M ore than half the days, M oving or speaking so slowly that other people could have noticed; or the opposite, being so fidgety or restless that you have been moving around a lot more than usual N ot at all, T houghts that you would be better off or of hurting yourself in some way N ot at all, T otal Score 8 , I nterpretation M ild Depression. I ntervention D epression Screening Findings P ositve, F ollow-Up for Depression M anagement of mental health treatment, S uicide Risk Assessment Performed , A dditional Evaluation for Depression P sychiatric interview and evaluation, N kevin of the standardized tool used for adult depression screening: P atient Health Questionnaire (PHQ-9). P ast Psychiatric Hospitalizations: Previous psychiatric hospitalizations P revious Psychiatric Hospitalization N o. P ast History of Suicidal attempt H ave you ever attempted suicide in the past N o. Follow up depresison, anxiety. sleep chronic since last visit I feel better since last visit increase Cymbalta 90 mg dose doing goodI am not getting mad any more nad I get frustrated but not get to me like used to before rx, depression and anxiety better, ? not agitation or irritable like before, I go to sleep and I stay asleep when toss and turn, and pain related and knee and takes a while to adjust position for sleep, sleep is better than it was, Testetrone injeciont soon, I feel like rx helping, I have Auro ring, Appetite less than before, I eat meals, I get full and drink a lot water with meals, I feel not as bad as before with sad or down anxiety not any where near where it was, and I [facility], may need records also, therapist was very pleased with my improvement and now every 2 months to see her, motivation and interest little better, better energy, I am on Testetrone and levels up to 600 now and I know I jesenia not have all energy at my age, b hernando on rx, and no psychosis no kalyan no SI/HI, tolerating rx no s/e, I am in therapy also improved since politics over. 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 * ROS: P atient reports reported lost few pounds weight loss (__0_ lbs) b ut reports no fever and no weight gain. Nose: seasonal allergies CPAP- over 15 years- s leep provider H e reports no dry mouth H e reports a rthralgias/joint pain knee pain- scheduled to be seen for replacement, and back pain hx but reports no muscle aches, no muscle weakness, no swelling in the extremities, no neck pain, no difficulty walking, and no cramps; schedule to see orthopedics. for knee replacement- right He reports no frequent or severe headaches b ut reports no loss of consciousness, no weakness, no numbness, no seizures, no dizziness, no tremor, no gait dysfunction, and no paralysis. He reports d epression, sleep disturbances, restless sleep, anxiety, and no memory loss b ut reports feeling safe in a relationship, no alcohol abuse, no hallucinations, no suicidal thoughts, no agitation He reports f atigue. H e reports wears glasses to read He reports no arm pain on exertion, no shortness of breath when walking, no shortness of breath when lying down, and no palpitations. H e reports no abdominal pain, no nausea, no vomiting, no constipation, normal appetite, no diarrhea, no dyspepsia, and some GERD. He reports no difficulty urinating and no increased frequency. * Medical History: A nxiety, HLD, HTN, Past Psychiatric History: Anxiety Disorder,PTSD, abdominal aortic aneurysm: No, atrial fibrillation: No, chronic fatigue syndrome: No, essential tremor: No, hyperlipidemia: No, hypertension: Yes, Parkinson's disease: No, restless leg syndrome: No, stroke: No, subdural hematoma: No, type 1 diabetes mellitus: No, type 2 diabetes mellitus: No, vitamin B12 deficiency: No, vitamin D deficiency: No. * Surgical History: l eft shoulder surgery 2007, vasectomy 1993. * Hospitalization/Major Diagno stic Procedure: l eft shoulder surgery 2007. * Family History: F ather: None. M aternal Aunt: None. M aternal Uncle: None. P aternal Aunt: None.?Paternal Uncle: None. M other: None. P aternal Grandfather: None. P aternal Grandmother: None. M aternal Grandfather: None. M aternal Grandmother: None. B rother: None.?Sister: None. S on: None. D aughter: None. * Social History: T obacco Use: T obacco Control (Standard) T obacco use: C urrent some day smoker, W hen did you start smoking? 1 11/25/2020, A dditional Findings: Tobacco user C igar smoker,Pipe smoker. S exual History: S exual History H ad sex in the past 12 months (vaginal, oral, or anal)? Y es, w ith W omen only. D rug/Alcohol: D rugs H ave you used drugs other than those for medical reasons in the past 12 months??No. C affeine I ntake: 1 -2 cups per day. D o you smoke marijuana?: Admitsmedical cannabis. Do you drink alcohol?: Yes, Socially. AUDIT-C (Standard) D id you have a drink containing alcohol in the past year? Y es, H ow often did you have six or more drinks on one occasion in the past year? 2 to 4 times a month (2 points), H ow many drinks did you have on a typical day when you were drinking in the past year? 3 or 4 drinks (1 point), H ow often did you have a drink containing alcohol in the past year? 2 to 4 times a month (2 points), P oints 5 , I nterpretation P ositive. H ousehold: H ousehold M arital status: m arried, N gerer of adults in household: 2 , L evel of education: n ot finished college GED and some college, A oh household tobacco use??Yes, A oh household pets? Y es 2 dogs. M iscellaneous: O ccupation: [employer]. Safety issues A re there any firearms in the house? N o.?Advance Care Planning A re you your own decision-maker Y es, D o you have Power of Water Conservation Specialist for Health or Medical? Y es. S ocial History: H darby Hawthorne arital Status: M arried, N umber of Adults in household: 2 , N umber of Children in Household: 0 , L evel of Education: N ot Finished College. * Medications: T aking Kyzatrex 200 MG Capsule 1 capsule with food Orally Twice a day , Taking hydroCHLOROthiazide 12.5 MG Tablet Oral , Taking traMADol HCl 50 MG Tablet TAKE 1 TABLET BY MOUTH EVERY 8 HOURS NEEDED FOR PAIN Oral , Taking Tamsulosin HCl 0.4 MG Capsule TAKE 2 CAPSULES BY MOUTH DAILY Oral , Taking Lisinopril 40 MG Tablet TAKE 1 TABLET BY MOUTH DAILY Oral , Taking Tadalafil 5 MG Tablet TAKE 1 TABLET BY MOUTH DAILY Oral , Taking DULoxetine HCl 60 MG Capsule Delayed Release Particles 1 capsule Orally Once a day , Notes to Pharmacist: total 90 mg daily, Taking DULoxetine HCl 30 MG Capsule Delayed Release Particles TAKE 1 CAPSULE BY MOUTH DAILY , Not-Taking Finasteride 5 MG Tablet Oral , Medication List reviewed and reconciled with the patient * Allergies: S tatins. Objective: * Vitals: B P:147/98mm Hg, HR:79/min, Wt:335lbs, Wt-k.95 kg, Ht: 70.5 in, Ht-cm: 179.07 cm, BMI:47.38Index, Body Surface Area: 2.75. * Examination: P sychiatry: Appearance: w ell-groomed, well-nourished, appears stated age, obese. Abnormal body movements: n one. Affect / mood: a ppropriate, full range. Aggression: l ow. Anger control: g ood. Attention: g ood. Attitude: c ooperative. Homicidal ideation: n one. Suicidal ideation: n one. Memory status: r eported short term with concentrate and focus good fdc. Degree of awareness of surroundings: w ithin normal limits.? Delusions: n o. Hallucinations: n o. Impulse control: g ood. Insight: g ood. Intellectual functioning: a verage. Comprehension - Intellectual function: a verage. Judgement: g ood. Orientation: a wake, alert and oriented x 3. Perceptual disorders: n o perceptual disorder noted. Psychomotor activity: w ithin normal range. Speech / language: a ppropriate pitch/modulation, clear and coherent, normal rate, volume, and articulation (RVR), proper grammar used. Thought content: a ppropriate. Thought process: i ntact. Assessment: * Assessment: 1. M DD (major depressive disorder), recurrent episode, moderate - F33.1 (Primary) ?2. G AD (generalized anxiety disorder) - F41.1 3 . C hronic post-traumatic stress disorder (PTSD) - F43.12 4 . O bstructive sleep apnea - G47.33 & #160; 5 . U nable to concentrate - R41.840 Major depression- currently on Cymbalta 90 mg [...] tested Sleep apnea- CPAP- see sleep provider Plan: * Treatment: 2. G AD (generalized anxiety disorder) Notes: Generalized Anxiety Disorder: Care Instructions material was published, Learning About Generalized Anxiety Disorder material was published, Learning About Anxiety Disorders material was published, Learning About Transcranial Magnetic Stimulation (TMS) material was published 3. C hronic post-traumatic stress disorder (PTSD) Notes: Post-Traumatic Stress Disorder (PTSD): Care Instructions material was published, Learning About PTSD After a Stay in the ICU material was published 4. O bstructive sleep apnea Notes: Sleep Apnea: Care Instructions material was published, Learning About Bilevel Positive Airway Pressure (BPAP) material was published, Heart Failure and Sleep Apnea: Care Instructions material was published * Procedure Codes: 9 6127 BEHAV ASSMT W/SCORE & DOCD/STAND INSTRUMENT, 29629 BEHAV ASSMT W/SCORE & DOCD/STAND INSTRUMENT, G9902 Pt scrn tbco and id as user, G2211 VISIT COMPLEXITY INHERENT TO ONGOING CARE RELATED TO A PATIENT'S SINGLE, SERIOUS CONDITION OR A COMPLEX CONDITION * Preventive Medicine: Counseling: B P Management: F IRST HYPERTENSIVE BP READING FOLLOW-UP PLAN: F ollow-up 1 month Follow up with your PCP, L IFESTYLE RECOMMENDATION: Jair vickers education, REFERRAL TO ALTERNATIVE / PRIMARY CARE PROVIDER: R eferral to general medical service educated on healthy b/p 120/80monitor b/p at homerefer to PCP, Urgent care/ERheart healthy diet and exciselimit salt intakelimit soda intake and caffieneincrease water. C ommunication to patient: C ounseled the Patient on tobacco use; cessation provided D o not smoke. Nicotine and other chemicals in cigarettes and cigars can cause lung damage. Ask your healthcare provider for information if you currently smoke and need help to quit. E-cigarettes or smokeless tobacco still contain nicotine. Talk to your healthcare provider before you use these products.education on decrease to stopping nicotine products and stop smoking hotline given. S moking Cessation counseling done Discuss the importance of quitting smoking, Smoking Cessation counseling done Discuss the importance of quitting smoking,. * Follow Up: 3 Months (Reason: f/u Cymbalta) * Billing Information: * Visit Code: 32090 OFFICE OUTPATIENT VISIT 25 MINUTES DETAILED HISTORY AND EXAM/MODERATE MEDICAL DECISION MAKING. * Procedure Codes: 52291 BEHAV ASSMT W/SCORE & DOCD/STAND INSTRUMENT. 65802 BEHAV ASSMT W/SCORE & DOCD/STAND INSTRUMENT. G9902 Pt scrn tbco and id as user. G2211 VISIT COMPLEXITY INHERENT TO ONGOING CARE RELATED TO A PATIENT'S SINGLE, SERIOUS CONDITION OR A COMPLEX CONDITION. * TING OPERATOR Sign off status: Completed true * Provider: KHANG LI Date: 10/28/2023 Generated for Saw ames/Karen/eTransmitting on: 0 11/21/2024 04:25 PM TWISTING OPERATOR History and Physical Notes * HPI (History of Present Illness) Category Sub-Category Detail Notes Category Not es Past Psychiatric Hospitalizations Previous psychiatric hospitalizations Previous Psychiatric Hospitalization: No Follow up depresison, anxiety. sleep chronic since last visit I feel better since last visit increase Cymbalta 90 mg dose doing goodI am not getting mad any more nad I get frustrated but not get to me like used to before rx, depression and anxiety better, not agitation or irritable like before, I go to sleep and I stay asleep when toss and turn, and pain related and knee and takes a while to adjust position for sleep, sleep is better than it was, Testetrone injeciont soon, I feel like rx helping, I have Auro ring, Appetite less than before, I eat meals, I get full and drink a lot water with meals, I feel not as bad as before with sad or down anxiety not any where near where it was, and I am workign with [facility] pain, may need records also, therapist was very pleased with my improvement and now every 2 months to see her, motivation and interest little better, better energy, I am on Testetrone and levels up to 600 now and I know I jesenia not have all energy at my age, better on rx, and no psychosis no kalyan no SI/HI, tolerating rx no s/e, I am in therapy also improved since politics over. 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 ETOH- 1-2 drinks a month- hx heacy and rehab hx DUI age 41 Smoking- former 4 ppd stopped 22 years ago reported cigars 1x month hx pipe- last used 3 months ago labs- PCP recently see Urologist and labs drugs- medical cannabis see provider at [facility] for pain for rt knee need replaced, and when knee hurts hard to get up I had injections FH ETOH - dad- passed age [age] years old - 1991 ETOH maternal grandparents Past History of Suicidal attempt Have yo u ever attempted suicide in the past: No Depression screening PHQ-9 Little inte rest or pleasure in doing things: More than half the days Feeling down, depressed, or hopeless: No t at all Trouble falling or staying asleep, or sl eeping too much: Nearly every day Feeling tired or having little energy: S everal days Poor appetite or overeating: Not at all Feeling bad about yourself o r that you are a failure, or have let yourself or your family down: Not at all Trouble concentrating on thi ngs, such as reading the newspaper or watching television: More than half the days Moving or speaking so slowly that other people could have noticed; or the opposite, being so fidgety or restless that you have been moving around a lot more than usual: Not at all Thoughts that you would be b hernando off or of hurting yourself in some way: Not at all Total Score: 8 Interpretation: Mild Depression Intervention Depression Screening Findings: P ositve Follow-Up for Depression: Management of mental health treatment Suicide Risk Assessment Performed: Additional Evaluation for De pression: Psychiatric interview and evaluation Name of the standardized too l used for adult depression screening:: Patient Health Questionnaire (PHQ-9) Depression Screening CATHERINE-7 (2018 Edition) Feelin g nervous, anxious, or on edge: Several days Not being able to stop or control worryi ng: Several days Worrying too much about different things : Several days Trouble relaxing: Nearly every day Being so restless that it is hard to sit still: Not at all Becoming easily annoyed or irritable: Se veral days Feeling afraid as if something awful lamont ht happen: Not at all Total CATHERINE-7 Score: 7 Interpretation of Total: (5 to 9) Mild [place]-Suicide Severity Rating Scale Suicide Risk (CSRS-screener) in the past one month Have you wished you were or wished you could go to sleep and not wake up?: No in the past one month Have y ou actually had any thoughts of killing yourself?: No Examination Category Sub-Category Detail Notes Category Not es Psychiatry Appearance: well-groomed, we ll-nourished, appears stated age, obese Attitude: cooperative Psychomotor activity: within normal rang e Abnormal body movements: none Attention: good Degree of awareness of surroundings: wit hin normal limits Orientation: awake, alert and deborah ented x 3 Affect / mood: appropriate, full ra nge Speech / language: appropriate pitch/mo dulation, clear and coherent, normal rate, volume, and articulation (RVR), proper grammar used Insight: good Judgement: good Thought process: intact Thought content: appropriate Perceptual disorders: no perceptual diso rder noted Aggression: low Anger control: good Suicidal ideation: none Homicidal ideation: none Intellectual functioning: average Impulse control: good Memory status: reported short term with concentrate and focus good fdc Delusions: no Hallucinations: no Comprehension - Intellectual function: a verage
--- OUTSIDE RECORDS SUMMARY | 2024-11-21 16:26 | XMS_ITS | Continuity of Care Document ---
Author Name [facility] Organization [facility] Care Team Providers Care Form Stripper Name Role Phone [facility] Unavailable Unavailable Problems Combined list of problems from [facility] and [facility] facilities. It does not include entries that were removed or entered in error. Problem Status Onset Date Problem Type Date of Resolution Comments Source Benign Prostatic Hypertrophy with Outflow Obstruction ([facility] [id number]) Active Condition [facility] HTN - Hypertension ([facility] [id number]) Active Condition [facility] Hyperlipidemia ([facility] [id number]) Active Condition [facility] Obesity ([facility] [id number]) Active Condition [facility] Obstructive sleep apnea of adult Active Condition [facility] Posttraumatic stress disorder Active Condition [facility] Prediabetes ([facility] [id number]) Active Condition [facility] visit for: administrative purpose Active Condition [facility] Diagnosis: ICD-10-CM G47.33 Obstructive sleep apnea (adult) (pediatric) Active Diagnosis [facility] Diagnosis: ICD-10-CM I10 Essential (primary) hypertension Active Diagnosis [facility] Diagnosis: ICD-10-CM Z00.01 Encounter for general adult medical exam w abnormal findings Active Diagnosis [facility] Medications Combined list of outpatient medications from [facility] and [facility] facilities.Medications provided include 1) outpatient medications from the last 15 months, and 2) patient-reported medications. Medication Details Route Status Patient Instructions Prescription Expires Prescription Number Last Dispense Date Ordering Provider Order Date Order Qty Source DULOXETINE HCL 30MG CAP,EC TAKE THREE CAPSULES BY MOUTH ONCE A DAY FOR ANXIETY DO NOT ABRUPTLY DISCONTI NUE MEDICATI ON. ORAL ACTIVE 11/04/2025 [id number] Edyta LOAIZA 2024 270 [facility] FINASTERIDE 5 MG ORAL TAB TAKE ONE TABLET BY MOUTH ONCE A DAY FOR BENIGN PROSTATI C HYPERPLA CASSANDRA SWALLOW WHOLE, DO NOT CRUSH, SPLIT, OR CHEW. Active 12/16/2024 [id number] 4 MERA NICOLAS 2023 90 [facility] FINASTERIDE 5MG TAB TAKE ONE TABLET BY MOUTH ONCE A DAY FOR BENIGN PROSTATI C HYPERPLA CASSANDRA SWALLOW WHOLE, DO NOT CRUSH, SPLIT, OR CHEW. ORAL DISCONT INUED BY PROVIDE R 12/16/2024 [id number] 4 AMNA NICOLAS 2023 90 [facility] FLOMAX (BRAND) 0.4 MG ORAL CAP TAKE TWO CAPSULES BY MOUTH EVERY EVENING FOR BENIGN PROSTATI C HYPERPLA CASSANDRA APPROXIM ATELY 30 MINUTES AFTER THE SAME MEAL EACH DAY Active 12/16/2024 [id number] 4 MERA NICOLAS 2023 180 [facility] hydroCHLORO thiazide (U/D) 12.5 MG PO CAP TAKE ONE CAPSULE BY MOUTH ONCE A DAY FOR HIGH BLOOD PRESSURE Active 12/16/2024 [id number] 4 MERA NICOLAS 2023 90 [facility] HYDROCHLORO THIAZIDE 12.5MG CAP TAKE ONE CAPSULE BY MOUTH ONCE A DAY FOR HIGH BLOOD PRESSURE ORAL DISCONT INUED BY PROVIDE R 12/16/2024 [id number] 4 AMNA NICOLAS 2023 90 [facility] Lisinopril (Prinivil) Tablet 40 mg Oral TAKE ONE TABLET BY MOUTH ONCE A DAY FOR HIGH BLOOD PRESSURE Active 12/16/2024 [id number] 4 MERA NICOLAS 2023 90 [facility] Jessica mccollum LISINOPRIL 40MG TAB TAKE ONE TABLET BY MOUTH ONCE A DAY FOR HIGH BLOOD PRESSURE ORAL DISCONT INUED BY PROVIDE R 12/16/2024 [id number] AMNA NICOLAS 2023 90 [facility] LOSARTAN POTASSIUM 100MG TAB TAKE ONE-HALF TABLET BY MOUTH ONCE A DAY FOR HIGH BLOOD PRESSURE ORAL ACTIVE 11/04/2025 [id number] DEPAULO,S UZANNE 2024 45 [facility] TADALAFIL 5MG TAB TAKE ONE TABLET BY MOUTH ONCE A DAY ORAL ACTIVE DEPAULO,S UZANNE 2024 [facility] TAMSULOSIN HCL (TAMSULOSIN HCL), 0.4 MG, CAP.SR 24H, ORAL, ZYDUS PHARMACEU, 100 ea. BOTTLE Active [id number] 2023 180 [facility] y [facility] y TAMSULOSIN HCL 0.4MG CAP TAKE TWO CAPSULES BY MOUTH EVERY EVENING FOR BENIGN PROSTATI C HYPERPLA CASSANDRA APPROXIM ATELY 30 MINUTES AFTER THE SAME MEAL EACH DAY ORAL ACTIVE 11/04/2025 [id number] 5 DEPAULO,S UZANNE 2024 180 [facility] TAMSULOSIN HCL 0.4MG CAP TAKE TWO CAPSULES BY MOUTH EVERY EVENING FOR BENIGN PROSTATI C HYPERPLA CASSANDRA APPROXIM ATELY 30 MINUTES AFTER THE SAME MEAL EACH DAY ORAL DISCONT INUED 12/16/2024 [id number] 4 AMNA NICOLAS 2023 180 [facility] TESTOSTERON E CYPIONATE 200MG/ML INJ,1ML (IN OIL) INJECT 200MG/1M L DEEP INTRAMUS CULARLY EVERY WEEK INTRAM USCULA R ACTIVE DEPAULO,S UZANNE 2024 [facility] TRAMADOL HCL (tramadol HCl), 50 MG, TABLET, ORAL, AMNEAL PHARMACE, 500 ea. BOTTLE Active 4 2023 20 [facility] y Results Combined list of recent chemistry, hematology and other laboratory results from [facility], ranging from 15 months to all on record, depending upon the facility. Order Name Results Value Reference Range Date Interpretation Specimen Comments Source CBC LEUKOCYTES [#/VOLUME] IN BLOOD BY AUTOMATED COUNT 7.0 10*3/uL 3.6 - 11.2 03/07 /2024 Specimen Type: BLOOD No comment entered. Ordering Provider: DWIGHT NICOLAS Report Released Date/Time: Dec 16, 2023 10:24 AM Reporting Lab: [address] [address] Performing Lab: [address] [address] [facility] CBC ERYTHROCYTE S [#/VOLUME] IN BLOOD BY AUTOMATED COUNT 4.92 10*6/uL 4.10 - 5.70 12/15 Specimen Type: BLOOD No comment entered. Ordering Provider: DWIGHT NICOLAS Report Released Date/Time: Dec 16, 2023 10:24 AM Reporting Lab: [address] [address] Performing Lab: [address] [phone] [place] [address] CBC HEMOGLOBIN [MASS/VOLUM E] IN BLOOD 14.4 g/dL 13.1 - 16.8 12/15 Specimen Type: BLOOD No comment entered. Ordering Provider: DWIGHT NICOLAS Report Released Date/Time: Dec 16, 2023 10:24 AM Reporting Lab: [facility] [address] [place] [phone] Performing Lab: [address] [phone] [place] [address] CBC HEMATOCRIT [VOLUME FRACTION] OF BLOOD 43.4 38.2 - 48.4 12/15 Specimen Type: BLOOD No comment entered. Ordering Provider: DWIGHT NICOLAS Report Released Date/Time: Dec 16, 2023 10:24 AM Reporting Lab: [address] [address] Performing Lab: [address] [address] [facility] CBC MCV [ENTITIC VOLUME] BY AUTOMATED COUNT 88.2 fL 80.0 - 100.0 12/15 Specimen Type: BLOOD No comment entered. Ordering Provider: DWIGHT NICOLAS Report Released Date/Time: Dec 16, 2023 10:24 AM Reporting Lab: [facility] [address] [place] [phone] Performing Lab: [facility] [address] [place] [phone] [place] [address] CBC MCH [ENTITIC MASS] BY AUTOMATED COUNT 29.3 pg 27.0 - 34.0 12/15 Specimen Type: BLOOD No comment entered. Ordering Provider: DWIGHT NICOLAS Report Released Date/Time: Dec 16, 2023 10:24 AM Reporting Lab: [facility] [address] [place] [phone] Performing Lab: [facility] [address] [place] [phone] CBC MCHC [MASS/VOLUM E] BY AUTOMATED COUNT 33.2 g/dL 33.0 - 36.0 12/15 Specimen Type: BLOOD No comment entered. Ordering Provider: DWIGHT NICOLAS Report Released Date/Time: Dec 16, 2023 10:24 AM Reporting Lab: [facility] [address] [place] [phone] Performing Lab: [facility] [address] [place] [phone] [place] [address] CBC PLATELETS [#/VOLUME] IN BLOOD BY AUTOMATED COUNT 323 10*3/uL 150 - 400 12/15 Specimen Type: BLOOD No comment entered. Ordering Provider: DWIGHT NICOLAS Report Released Date/Time: Dec 16, 2023 10:24 AM Reporting Lab: [facility] [address] [place] [phone] Performing Lab: [facility] [address] [place] [phone] [place] [address] CBC PLATELET MEAN VOLUME [ENTITIC VOLUME] IN BLOOD BY AUTOMATED COUNT 9.5 fL 7.5 - 11.2 12/15 Specimen Type: BLOOD No comment entered. Ordering Provider: DWIGHT NICOLAS Report Released Date/Time: Dec 16, 2023 10:24 AM Reporting Lab: [facility] [address] [facility] [phone] Performing Lab: [facility] [address] [facility] [phone] [facility] CBC ERYTHROCYTE DISTRIBUTIO N WIDTH [RATIO] BY AUTOMATED COUNT 12.6 11.8 - 15.1 12/15 Specimen Type: BLOOD No comment entered. Ordering Provider: DWIGHT NICOLAS Report Released Date/Time: Dec 16, 2023 10:24 AM Reporting Lab: [facility] [address] [facility] [phone] Performing Lab: [facility] [address] [facility] [phone] [place] [address] CBC LYMPHOCYTES /100 LEUKOCYTES IN BLOOD BY AUTOMATED COUNT 20 12/15 Specimen Type: BLOOD No comment entered. Ordering Provider: DWIGHT NICOLAS Report Released Date/Time: Dec 16, 2023 10:24 AM Reporting Lab: [facility] [address] [facility] [phone] Performing Lab: [facility] [address] [place] [phone] [facility] CBC MONOCYTES/1 00 LEUKOCYTES IN BLOOD BY AUTOMATED COUNT 7 12/15 Specimen Type: BLOOD No comment entered. Ordering Provider: DWIGHT NICOLAS Report Released Date/Time: Dec 16, 2023 10:24 AM Reporting Lab: [facility] [address] [facility] [phone] Performing Lab: [facility] [address] [facility] [phone] [facility] CBC NEUTROPHILS /100 LEUKOCYTES IN BLOOD BY AUTOMATED COUNT 71 12/15 Specimen Type: BLOOD No comment entered. Ordering Provider: DWIGHT NICOLAS Report Released Date/Time: Dec 16, 2023 10:24 AM Reporting Lab: [facility] [address] [place] [phone] Performing Lab: [place] [address] [facility] [address] [facility] CBC EOSINOPHILS /100 LEUKOCYTES IN BLOOD BY AUTOMATED COUNT 1 12/15 Specimen Type: BLOOD No comment entered. Ordering Provider: DWIGHT NICOLAS Report Released Date/Time: Dec 16, 2023 10:24 AM Reporting Lab: [place] [address] [facility] [phone] Performing Lab: [address] [phone] [facility] CBC BASOPHILS/1 00 LEUKOCYTES IN BLOOD BY AUTOMATED COUNT 1 12/15 Specimen Type: BLOOD No comment entered. Ordering Provider: DWIGHT NICOLAS Report Released Date/Time: Dec 16, 2023 10:24 AM Reporting Lab: [address] [phone] Performing Lab: [address] [address] [facility] CBC LYMPHOCYTES [#/VOLUME] IN BLOOD BY AUTOMATED COUNT 1.39 10*3/uL 0.77 - 4.50 12/15 Specimen Type: BLOOD No comment entered. Ordering Provider: DWIGHT NICOLAS Report Released Date/Time: Dec 16, 2023 10:24 AM Reporting Lab: [facility] [phone] Performing Lab: [place] [address] [facility] [phone] [facility] CBC MONOCYTES [#/VOLUME] IN BLOOD BY AUTOMATED COUNT 0.51 10*3/uL 0.19 - 0.80 12/15 Specimen Type: BLOOD No comment entered. Ordering Provider: DWIGHT NICOLAS Report Released Date/Time: Dec 16, 2023 10:24 AM Reporting Lab: [facility] [address] [place] [phone] Performing Lab: [facility] [address] [facility] [address] [facility] CBC NEUTROPHILS [#/VOLUME] IN BLOOD BY AUTOMATED COUNT 4.96 10*3/uL 2.10 - 8.00 12/15 Specimen Type: BLOOD No comment entered. Ordering Provider: DWIGHT NICOLAS Report Released Date/Time: Dec 16, 2023 10:24 AM Reporting Lab: [address] [address] Performing Lab: [address] [phone] CBC EOSINOPHILS [#/VOLUME] IN BLOOD BY AUTOMATED COUNT 0.07 10*3/uL 0.00 - 0.60 12/15 Specimen Type: BLOOD No comment entered. Ordering Provider: DWIGHT NICOLAS Report Released Date/Time: Dec 16, 2023 10:24 AM Reporting Lab: [address] [phone] Performing Lab: [address] [phone] CBC BASOPHILS [#/VOLUME] IN BLOOD BY AUTOMATED COUNT 0.04 10*3/uL 0.00 - 0.20 12/15 Specimen Type: BLOOD No comment entered. Ordering Provider: DWIGHT NICOLAS Report Released Date/Time: Dec 16, 2023 10:24 AM Reporting Lab: [address] [phone] Performing Lab: [address] [phone] COMPREHEN SIVE METABOLIC PANEL CREATININE [MASS/VOLUM E] IN SERUM OR PLASMA 0.78 mg/dL 0.7 - 1.3 12/15 Specimen Type: PLASMA Comment: No hemolysis noted. Ordering Provider: DWIGHT NICOLAS Report Released Date/Time: Dec 16, 2023 10:24 AM Reporting Lab: [place] [address] [facility] [address] Performing Lab: [facility] [address] [facility] [phone] [facility] COMPREHEN SIVE METABOLIC PANEL UREA NITROGEN [MASS/VOLUM E] IN SERUM OR PLASMA 21.5 mg/dL 9.0 - 25.0 12/15 Specimen Type: PLASMA Comment: No hemolysis noted. Ordering Provider: DWIGHT NICOLAS Report Released Date/Time: Dec 16, 2023 10:24 AM Reporting Lab: [facility] [address] [facility] [phone] Performing Lab: [facility] [address] [facility] [address] [facility] COMPREHEN SIVE METABOLIC PANEL GLUCOSE [MASS/VOLUM E] IN SERUM OR PLASMA 111 mg/dL 72 - 99 12/15 H Specimen Type: PLASMA Comment: No hemolysis noted. Ordering Provider: DWIGHT NICOLAS Report Released Date/Time: Dec 16, 2023 10:24 AM Reporting Lab: [facility] [address] [facility] [address] Performing Lab: [facility] [address] [facility] [address] [facility] COMPREHEN SIVE METABOLIC PANEL SODIUM [MOLES/VOLU ME] IN SERUM OR PLASMA 135 meq/L 136 - 145 12/15 L Specimen Type: PLASMA Comment: No hemolysis noted. Ordering Provider: DWIGHT NICOLAS Report Released Date/Time: Dec 16, 2023 10:24 AM Reporting Lab: [facility] [address] [facility] [phone] Performing Lab: [facility] [address] [place] [phone] [facility] COMPREHEN SIVE METABOLIC PANEL POTASSIUM [MOLES/VOLU ME] IN SERUM OR PLASMA 4.3 meq/L 3.5 - 5 12/15 Specimen Type: PLASMA Comment: No hemolysis noted. Ordering Provider: DWIGHT NICOLAS Report Released Date/Time: Dec 16, 2023 10:24 AM Reporting Lab: [facility] [address] [facility] [phone] Performing Lab: [facility] [address] [facility] [address] [facility] COMPREHEN SIVE METABOLIC PANEL CHLORIDE [MOLES/VOLU ME] IN SERUM OR PLASMA 100 meq/L 98 - 107 12/15 Specimen Type: PLASMA Comment: No hemolysis noted. Ordering Provider: DWIGHT NICOLAS Report Released Date/Time: Dec 16, 2023 10:24 AM Reporting Lab: [facility] [address] [facility] [phone] Performing Lab: [facility] [address] [place] [address] [phone] [place] [address] COMPREHEN SIVE METABOLIC PANEL CARBON DIOXIDE, TOTAL [MOLES/VOLU ME] IN SERUM OR PLASMA 24 meq/L 22 - 31 12/15 Specimen Type: PLASMA Comment: No hemolysis noted. Ordering Provider: DWIGHT NICOLAS Report Released Date/Time: Dec 16, 2023 10:24 AM Reporting Lab: [facility] [address] [facility] [address] Performing Lab: [facility] [address] [facility] [address] [facility] COMPREHEN SIVE METABOLIC PANEL CALCIUM [MASS/VOLUM E] IN SERUM OR PLASMA 9.5 mg/dL 8.4 - 10.4 12/15 Specimen Type: PLASMA Comment: No hemolysis noted. Ordering Provider: DWIGHT NICOLAS Report Released Date/Time: Dec 16, 2023 10:24 AM Reporting Lab: [facility] [address] [facility] [address] Performing Lab: [facility] [address] [place] [phone] [facility] COMPREHEN SIVE METABOLIC PANEL PROTEIN [MASS/VOLUM E] IN SERUM OR PLASMA 7.1 g/dL 6 - 8.6 12/15 Specimen Type: PLASMA Comment: No hemolysis noted. Ordering Provider: DWIGHT NICOLAS Report Released Date/Time: Dec 16, 2023 10:24 AM Reporting Lab: [facility] [address] [facility] [address] Performing Lab: [facility] [address] [facility] [address] [facility] COMPREHEN SIVE METABOLIC PANEL ALBUMIN [MASS/VOLUM E] IN SERUM OR PLASMA 4.1 g/dL 3.4 - 5 12/15 Specimen Type: PLASMA Comment: No hemolysis noted. Ordering Provider: DWIGHT NICOLAS Report Released Date/Time: Dec 16, 2023 10:24 AM Reporting Lab: [facility] [address] [place] [phone] Performing Lab: [facility] [address] [place] [phone] [place] [address] COMPREHEN SIVE METABOLIC PANEL BILIRUBIN.T OTAL [MASS/VOLUM E] IN SERUM OR PLASMA 0.4 mg/dL 0.2 - 1.2 12/15 Specimen Type: PLASMA Comment: No hemolysis noted. Ordering Provider: DWIGHT NICOLAS Report Released Date/Time: Dec 16, 2023 10:24 AM Reporting Lab: [facility] [address] [facility] [address] Performing Lab: [facility] [address] [place] [phone] [facility] COMPREHEN SIVE METABOLIC PANEL ALKALINE PHOSPHATASE [ENZYMATIC ACTIVITY/VO LUME] IN SERUM OR PLASMA 63 U/L 40 - 150 12/15 Specimen Type: PLASMA Comment: No hemolysis noted. Ordering Provider: DWIGHT NICOLAS Report Released Date/Time: Dec 16, 2023 10:24 AM Reporting Lab: [facility] [address] [facility] [address] Performing Lab: [facility] [address] [place] [phone] [facility] COMPREHEN SIVE METABOLIC PANEL ASPARTATE AMINOTRANSF ERASE [ENZYMATIC ACTIVITY/VO LUME] IN SERUM OR PLASMA 22 U/L 5 - 34 12/15 Specimen Type: PLASMA Comment: No hemolysis noted. Ordering Provider: DWIGHT NICOLAS Report Released Date/Time: Dec 16, 2023 10:24 AM Reporting Lab: [facility] [address] [facility] [address] Performing Lab: [facility] [address] [place] [address] [phone] COMPREHEN SIVE METABOLIC PANEL ALANINE AMINOTRANSF ERASE [ENZYMATIC ACTIVITY/VO LUME] IN SERUM OR PLASMA 25 U/L 8 - 40 12/15 Specimen Type: PLASMA Comment: No hemolysis noted. Ordering Provider: DWIGHT NICOLAS Report Released Date/Time: Dec 16, 2023 10:24 AM Reporting Lab: [facility] [address] [facility] [address] Performing Lab: [facility] [address] [facility] [phone] [place] [address] COMPREHEN SIVE METABOLIC PANEL GLOMERULAR FILTRATION RATE/1.73 SQ M.PREDICTED [VOLUME RATE/AREA] IN SERUM, PLASMA OR BLOOD BY CREATININE- BASED FORMULA (CKD-EPI 2020) 100.8 60 12/15 Specimen Type: PLASMA Comment: No hemolysis noted. Ordering Provider: DWIGHT NICOLAS Report Released Date/Time: Dec 16, 2023 10:24 AM Reporting Lab: [facility] [address] [facility] [address] Performing Lab: [facility] [address] [facility] [phone] [place] [address] HGA1C HEMOGLOBIN A1C/HEMOGLO BIN.TOTAL IN BLOOD 6.1 4.0 - 6.0 12/15 H Specimen Type: BLOOD No comment entered. Ordering Provider: DWIGHT NICOLAS Report Released Date/Time: Dec 16, 2023 10:24 AM Reporting Lab: [facility] [address] [place] [phone] Performing Lab: [facility] [address] [place] [phone] [facility] LIPID PANEL (STL) CHOLESTEROL [MASS/VOLUM E] IN SERUM OR PLASMA 228 mg/dL 0 - 200 12/15 H Specimen Type: PLASMA Comment: No hemolysis noted. Ordering Provider: DWIGHT NICOLAS Report Released Date/Time: Dec 16, 2023 10:24 AM Reporting Lab: [address] [address] Performing Lab: [address] [address] [facility] LIPID PANEL (L) TRIGLYCERID E [MASS/VOLUM E] IN SERUM OR PLASMA 163 mg/dL 0 - 150 12/15 H Specimen Type: PLASMA Comment: No hemolysis noted. Ordering Provider: DWIGHT NICOLAS Report Released Date/Time: Dec 16, 2023 10:24 AM Reporting Lab: [address] [address] Performing Lab: [address] [address] [facility] LIPID PANEL (STL) CHOLESTEROL IN LDL [MASS/VOLUM E] IN SERUM OR PLASMA BY CALCULATION 149 mg/dL 12/15 Specimen Type: PLASMA Comment: No hemolysis noted. Ordering Provider: DWIGHT NICOLAS Report Released Date/Time: Dec 16, 2023 10:24 AM Reporting Lab: [address] [address] Performing Lab: [address] [address] [facility] LIPID PANEL (STL) CHOLESTEROL IN HDL [MASS/VOLUM E] IN SERUM OR PLASMA 46 mg/dL 40 12/15 Specimen Type: PLASMA Comment: No hemolysis noted. Ordering Provider: DWIGHT NICOLAS Report Released Date/Time: Dec 16, 2023 10:24 AM Reporting Lab: [address] [phone] Performing Lab: [address] [phone] [place] [address] PROST. SPECIFIC AG.(PB-ST L) PROSTATE SPECIFIC AG [MASS/VOLUM E] IN SERUM OR PLASMA 0.797 ng/mL 0 - 4 12/15 Specimen Type: SERUM Comment: The listed sex of this patient may not be a typical indication for this test. Therefore, reference ranges or interpretiv e criteria listed may not be valid. Clinical correlation suggested. Ordering Provider: DWIGHT NICOLAS Report Released Date/Time: Dec 16, 2023 10:24 AM Reporting Lab: [address] [id number] Performing Lab: [address] HIV COMBO FOURTH GENERATIO N (STL) HIV 1+2 AB+HIV1 P24 AG [PRESENCE] IN SERUM OR PLASMA BY IMMUNOASSAY Nonreact aminata 12/15 Specimen Type: SERUM No comment entered. Ordering Provider: DWIGHT NICOLAS Report Released Date/Time: Dec 16, 2023 10:36 AM Reporting Lab: [address] [id number] Performing Lab: [address] [id number] [place] [address] HEP C Ab HCV Ab (L) HEPATITIS C VIRUS AB [PRESENCE] IN SERUM Nonreact aminata 12/15 Specimen Type: SERUM Comment: The listed sex of this patient may not be a typical indication for this test. Therefore, reference ranges or interpretiv e criteria listed may not be valid. Clinical correlation suggested. Ordering Provider: DWIGHT NICOLAS Report Released Date/Time: Dec 16, 2023 10:36 AM Reporting Lab: [address] [address] Performing Lab: [address] [address] [facility] CYSTATIN C EGFR PANELS (STL-PB-M A) CYSTATIN C [MASS/VOLUM E] IN SERUM OR PLASMA 1.01 mg/L 0.57 - 1.80 12/15 Specimen Type: PLASMA Comment: Choice of which of the reported eGFR values to use depends on the clinical situation. For example, for patients with severe muscle wasting or reduced muscle mass, eGFR calculated using the 2012 cystatin equation may be preferred. Ordering Provider: DWIGHT NICOLAS Report Released Date/Time: Dec 16, 2023 10:40 AM Reporting Lab: [address] [address] Performing Lab: [address] CYSTATIN C EGFR PANELS ([facility]-PB-M A) CKD-EPI CYSTATIN C (2011) 76.1 60 12/15 Specimen Type: PLASMA Comment: Choice of which of the reported eGFR values to use depends on the clinical situation. For example, for patients with severe muscle wasting or reduced muscle mass, eGFR calculated using the 2011 cystatin equation may be preferred. Ordering Provider: DWIGHT NICOLAS Report Released Date/Time: Dec 16, 2023 10:40 AM Reporting Lab: [address] [address] Performing Lab: [address] [id number] CYSTATIN C EGFR PANELS ([facility]-PB-M A) CKD-EPI CREAT-CYSC (2020) 90.2 60 12/15 Specimen Type: PLASMA Comment: Choice of which of the reported eGFR values to use depends on the clinical situation. For example, for patients with severe muscle wasting or reduced muscle mass, eGFR calculated using the 2011 cystatin equation may be preferred. Ordering Provider: DWIGHT NICOLAS Report Released Date/Time: Dec 16, 2023 10:40 AM Reporting Lab: [address] [phone] Performing Lab: [facility] [address] [facility] [address] [facility] CYSTATIN C EGFR PANELS (STL-PB-M A) CREATININE [MASS/VOLUM E] IN SERUM OR PLASMA 0.78 mg/dL 0.7 - 1.3 12/15 Specimen Type: PLASMA Comment: Choice of which of the reported eGFR values to use depends on the clinical situation. For example, for patients with severe muscle wasting or reduced muscle mass, eGFR calculated using the 2012 cystatin equation may be preferred. Ordering Provider: DWIGHT NICOLAS Report Released Date/Time: Dec 16, 2023 10:40 AM Reporting Lab: [address] [address] Performing Lab: [address] [address] [facility] Vital Signs Combined list of inpatient and outpatient Vital Signs from Department of Defense and Veterans Affairs, ranging from 12 months to all on record, depending upon the facility. Vital Sign Value Date Comments Source SYSTOLIC BLOOD PRESSURE 140 11/03/2024 10:34:53 [facility] DIASTOLIC BLOOD PRESSURE 89 11/03/2024 10:34:53 [facility] WEIGHT 339.8 11/03/2024 10:34:53 [facility] BMI 49 kg/m2 11/03/2024 10:34:53 [facility] PAIN 10 11/03/2024 10:34:53 [facility] TEMPERATURE 97.5 11/03/2024 10:34:53 [facility] PULSE 73 11/03/2024 10:34:[address] [facility] RESPIRATION 18 11/03/2024 10:34:53 [facility] SYSTOLIC BLOOD PRESSURE 145 12/16/2023 09:44:39 [facility] DIASTOLIC BLOOD PRESSURE 88 12/[facility] 95 12/16/2023 09:44:39 S [facility] WEIGHT 350 12/16/2023 09:44:39 [facility] Kam [facility] BMI 50 kg/m2 12/16/2023 09:44:39 [facility] PAIN 4 12/16/2023 09:44:39 STCoco [facility] HEIGHT 70 12/16/2023 09:44:39 [facility] Kam [facility] TEMPERATURE 98.1 12/16/2023 09:44:39 STCoco ENNIS [facility] PULSE 72 12/16/2023 09:44:39 [facility] Kam [facility] RESPIRATION 18 12/16/2023 09:44:39 [facility] Encounters Combined list of: 1) Encounters from Department of Veterans Affairs facilities going backup to the last 18 months, not all VA inpatient encounters are included; 2) Encounters from the Department of [facility] facilities going backup to 280 months. Location Location Details Encounter Type Encounter Number Reason For Visit Attending Provider ADM Date DC Date Status Disposition Source [address] [place] [address] Gildardo RIOS ([facility]Sco tt [facility] Team 3) TELE CONSULT [id number] request bridget beltrán for colonos copy HUNTER PATIÑO 01/[address] [place] [address] Gildardo RIOS ([facility])(S cott [facility] Team 3) [facility] Outpatient Encounter [id number] 06/01 [facility] Outpatient Encounter [id number] 12/08 [facility] Outpatient Encounter [id number] KALPESH MILLER J 12/13 [facility] Outpatient Encounter [id number] 12/15 [facility] Outpatient Encounter [id number] Diagnos is: ICD-10- CM Z00.01 Encount er for general adult medical exam w abnorma l finding s JEMMA NICOLAS GISELA D 12/15 [facility] Outpatient Encounter [id number] 11/02 [facility] OFFICE O/P EST MOD 30 MIN [id number] Diagnos is: ICD-10- CM I10 Essenti al (primar y) hyperte nsion DEPAUVENKATESHPAUL ZANNE 11/03 [facility] OFF/OP EST FEBRUARY X REQ PHY/QHP [id number] Diagnos is: ICD-10- CM G47.33 Obstruc tive sleep apnea (adult) (pediat mala) SKIP CALHOUN G 11/15 [facility] Outpatient Encounter [id number] 11/15 [facility] Procedures Combined list of: 1) Procedures from Department of Veterans Affairs facilities going back up to thelast 18 months, not all VA non-surgical procedures are included; 2) All procedures from the Department of Defense facilities. Procedure Procedure Type Code Date Perfomer Comments Sourc e TELE ASSESS & MGT SRV PROV QUAL NONPHYS HLTH CARE PRO TO EST PAT,PARENT,GUARD NOT ORIG REL ASSESS & MGT SRV PROV W/IN PREV 7 DAYS NOR LEAD ASSESS & MGT SRV/PX W/IN NXT 24 HR/SOON APT;5-10 MIN MED DIS 01/02/2009 DoD Non-Physician Phone Call To Patient/Provider Brief (5-10min) Non-Physician Phone Call To Patient/Provider Brief (5-10min) [id number] 01/09/2009 HUNTER PATIÑO Social History Combined list of available smoking, tobacco, and other social history from Department of Defense and Veterans Affairs facilities. Social History Type Response Date Comment Sourc e Tobacco smoking status NHIS VA-TOBACCO USER SOME DAYS 12/16/2023 [facility] History of tobacco use MT-TOBACCO DOESNT USE WI 30 MIN WAKEUP 12/16/2023 [facility] This section is an empty social history section. DoD Plan of Care List of future care activities from Department of [facility] Affairs facilities. Additional future care activities may be listed in the Assessment and Plan section. Date/Time Care Activity Care Activity Detail Facili ty 11/22/2024 AMBULATORY - MEDICINE AMBULATORY - MEDICI [facility] 11/29/2024 [facility] 12[facility]06/2024 [facility] - [facility] 12/06/2024 AMBULATORY - NONE AMBULATORY - NONE [facility] 12/13/2024 AMBULATORY [facility] 12/20/2024 [facility]ULAT[facility] - [facility] 12[facility]27/2024 AMBULATORY - MEDICINE AMBULATORY - MEDICI [facility] 01/03/2025 AMBULATORY - MEDICINE AMBULATORY - MEDICI [facility] 01/10/2025 AMBULATORY - MEDICINE AMBULATORY - MEDICI [facility] 01/17/2025 AMBULATORY - MEDICINE AMBULATORY - MEDICI [facility] 01/18/2025 AMBULATORY - MEDICINE AMBULATORY - MEDICI [facility] 01/24/2025 AMBULATORY - MEDICINE AMBULATORY - MEDICI [facility] 01/31/2025 AMBULATORY - MEDICINE AMBULATORY - MEDICI [facility] 02/07/2025 AMBULATORY - MEDICINE AMBULATORY - MEDICI [facility] 02/14/2025 AMBULATORY - MEDICINE AMBULATORY - MEDICI [facility] 02/21/2025 AMBULATORY - MEDICINE AMBULATORY - MEDICI [facility] 02/28/2025 AMBULATORY - [facility] 03/07/2025 AM[facility] - [facility] 11/03/2024 Laboratory - [employer] Order COMPREHENSIVE METABOLIC PANEL GREEN LI/HEP BLD/PLAS PLASMA SP [facility] 11/03/2024 Laboratory - [place] [employer] Order LIPID PANEL (STL) GREEN LI/HEP BLD/PLAS PLASMA SP ONCE [facility] 11/03/2024 Laboratory - [place] [employer] Order CBC BLOOD SP [facility] 11/03/2024 Laboratory - [place] [employer] Order HGA1C BLOOD SP [facility] 11/03/2024 Laboratory - [place] [employer] Order TSH W/ REFLEX FT4 (STL) GREEN LI-HEP PLASMA SP [facility] 11/03/2024 Consult Order SLEEP CLINIC OUT PT STL Cons [employer] Operator's Choice [facility]
--- OUTSIDE RECORDS SUMMARY | 2024-11-21 16:26 | XMS_ITS | Encounter Summary ---
Author Name [facility] ([place]) Organization [facility] (AL) Address [address] [place] [address] Care Team Providers Care Ground Layer Name Role Phone MAYRA LOAIZA Primary Care Provider Unavailab le Selected Encounter This section includes the information on record at AL for the Encounter. Date/Time Encounter Type Encounter Description Reason Provider Source Nov 03, 2024 10:30 AM OFFICE O/P EST MOD 30 MIN PRIMARY CARE/MEDICINE ICD-10-CM I10 Essential (primary) hypertension JAY LOAIZA Encounter Template Text not used by AL Assessments - Encounter Diagnoses This section includes the primary and secondary diagnoses documented for the Encounter. Date/Time Primary/Secondary Diagnosis Diagnosis Name Provider Source Nov 03, 2024 11:36 AM PRIMARY Essential (primary) hypertension AGUSTINA LOAIZA [facility] Nov 03, 2024 11:36 AM SECONDARY Hyperlipidemia, unspecified AGUSTINA LOAIZA [facility] Nov 03, 2024 11:36 AM SECONDARY Obesity, unspecified AGUSTINA LOAIZA [facility] Nov 03, 2024 11:36 AM SECONDARY Obstructive sleep apnea (adult) (pediatric) AGUSTINA LOAIZA [facility] Nov 03, 2024 11:36 AM SECONDARY Pain in left knee AGUSTINA LOAIZA [facility] Nov 03, 2024 11:36 AM SECONDARY Pain in right knee AGUSTINA LOAIZA [facility] Nov 03, 2024 11:36 AM SECONDARY Post-traumatic stress disorder, unspecified AGUSTINA LOAIZA [facility] Nov 03, 2024 11:36 AM SECONDARY Testicular hypofunction DEPAULO,AGUSTINA E [facility] Plan of Treatment: Future Appointments (+ 6 months) and Future Tests (+/- 45 days) The Plan of Treatment section includes future care activities for the patient from all [facility]. This section includes future appointments and future orders which are active, pending or scheduled. Future Appointments This section includes appointments that were scheduled to occur 6 months from the date of the Encounter, up to a maximum of 20 appointments. The data comes from all [place] treatment facilities. Appointment Date/Time Appointment Type Appointme nt Facility Name Nov 14, 2024 09:00 AM AMBULATORY - MEDICINE [facility] Nov 22, 2024 11:00 AM AMBULATORY - MEDICINE [facility] Nov 29, 2024 11:00 AM AMBULATORY - MEDICINE [facility] Dec 06, 2024 11:00 AM AMBULATORY - MEDICINE [facility] Dec 06, 2024 01:00 PM AMBULATORY - NONE [facility] Dec 13, 2024 11:00 AM AMBULATORY - MEDICINE [facility] Dec 20, 2024 11:00 AM AMBULATORY - MEDICINE [facility] Dec 27, 2024 11:00 AM AMBULATORY - MEDICINE [facility] Jan 03, 2025 11:00 AM AMBULATORY - MEDICINE [facility] Jan 10, 2025 11:00 AM AMBULATORY - MEDICINE [facility] Jan 17, 2025 11:00 AM AMBULATORY - MEDICINE [facility] Jan 18, 2025 11:00 AM AMBULATORY - MEDICINE [facility] Jan 24, 2025 11:00 AM AMBULATORY - MEDICINE [facility] Jan 31, 2025 11:00 AM AMBULATORY - MEDICINE [facility] Feb 07, 2025 11:00 AM AMBULATORY - MEDICINE [facility] February 14, 2025 11:00 AM AMBULATORY - MEDICINE [facility] February 21, 2025 11:00 AM AMBULATORY - MEDICINE [facility] February 28, 2025 11:00 AM AMBULATORY - MEDICINE [facility] March 07, 2025 11:00 AM AMBULATORY - MEDICINE [facility] Active, Pending, and Scheduled Orders This section includes a listing of several types of active, pending, and scheduled orders, including clinic medications orders, diagnostic test orders, procedure orders and consult orders; where the start date of the order is 45 days before the date of the Encounter or 45 days after the date of theEncounter. The data comes from all [place] treatment facilities. Test Date/Time Test Type Test Details Facility Name Nov 03, 2024 12:00 AM Laboratory - Chemistry Order COMPREHENSIVE METABOLIC PANEL GREEN LI/HEP BLD/PLAS PLASMA SP [facility] Nov 03, 2024 12:00 AM Laboratory - Chemistry Order LIPID PANEL (STL) GREEN LI/HEP BLD/PLAS PLASMA SP ONCE [facility] Nov 03, 2024 12:00 AM Laboratory - Chemistry Order CBC BLOOD SP [facility] Nov 03, 2024 12:00 AM Laboratory - Chemistry Order HGA1C BLOOD SP [facility] Nov 03, 2024 12:00 AM Laboratory - Chemistry Order TSH W/ REFLEX FT4 (STL) GREEN LI-HEP PLASMA SP [facility] Nov 03, 2024 11:38 AM Consult Order SLEEP CLIN IC OUTPT STL Cons Wastewater Engineer's Choice [facility] Vital Signs: All taken on the encounter date This section contains inpatient and outpatient Vital Signs collected on the date of the Encounter. Date/Time Temperature Pulse Blood Pressure Respiratory Rate SP02 Pain Height Weight Body Mass Index Source Nov 03, 2024 10:34 AM 97.5 73 140/89 18 10 339.8 49 [facility] Social History: Smoking Status (Most current) and Tobacco Use (All prior to encounter date) This section includes the most current, and the historical, smoking and tobacco- related health factors from the AL facility where the Encounter took place. Current Smoking Status This section includes the most current smoking, or tobacco-related health factor, from the AL facility where the Encounter took place. Date/Time Current Smoking Status Comment Facil ity Dec 16, 2023 10:00 AM VA-TOBACCO USER SOME DAYS [facility] Tobacco Use History This section includes a history of the smoking, or tobacco-related health factors, that were collected on or before the date of the Encounter. The data comes from the AL facility where the Encounter took place. Date/Time Smoking Status/Tobacco Use Comment F acility Dec 16, 2023 10:00 AM VA-TOBACCO USE 30 YEARS OR MORE [facility] Dec 16, 2023 10:00 AM VA-TOBACCO USE ADVICE [facility] Dec 16, 2023 10:00 AM VA-TOBACCO USE RESOURCE TECHNICIAN NO [facility] Dec 16, 2023 10:00 AM VA-TOBACCO USE MED NO [facility] Dec 16, 2023 10:00 AM VA-TOBACCO USER SOME DAYS [facility] Encounter Notes: All associated encounter notes This section contains the clinical notes associated to the Encounter. Date/Time Encounter Note(s) Provider Source Nov 03, 2024 10:46 AM PRIMARY CARE NOTE: LOCAL TITLE: PRIMARY CARE PROVIDER ESTABLISHED VISIT [facility] STANDARD TITLE: PRIMARY CARE NOTE DATE OF NOTE: NOV 03, 2024@10:46 ENTRY DATE: NOV 03, 2024@10:46:50 AUTHOR: MAYRA LOAIZA EXP COSIGNER: URGENCY: STATUS: COMPLETED Patient is 64 and WHITE Self Identified Gender - Man Reason for visit:Scheduled follow-up Chief Complaint: 64yo male here for f/u visit, last visit December 2023. Non-VA Providers: -PCP: Dr. Erik Perla, [facility]. Q6mo -Urology: [facility] -Psychiatry: [place], [place] -Psychologist -Ortho: Sagar Castro History of Present Illness: Reports since his last visit his nonVA providers have changed his medications. He has a hx of HTN, and his lisinopril was stopped due to issues with ED. He is now on losartan 50mg daily, just started 2 week ago. He does not often check his BP at home. He would like the medication through the VA. He also has a hx of BPH, seeing nonVA Urology. He continues to use tamsulosin 0.8mg, but is no longer on finasteride. He is now using tadalafil 5mg daily for BPH with LUTS. Reports his urinary issues have improved, including improved hesitancy and frequency. --he has also been started on testosterone, started about 4-5 months ago. Reports his levels were low. Now on 200mg weekly. He also has a hx of PTSD and anxiety, has been started on duloxetine and is now on 90mg daily. He reports he finds this medication is working very well for him to control his anxiety and irritability. He would like this medication through the [facility]. --he had no prior medication for MH. Also with ongoing R knee pain, reports that it is bone on bone and has plans for a knee replacement but he needs to loose 40lbs first. --also with left knee pain, reports also with OA but not as bad as the right knee. Hx of HLD, has previously tried rosvuastatin but did not tolerate it well. Reports he felt blah and self discontinued the medication. Hx of RADHA, currently using CPAP. He will be travelling and is wondering about alternatives for his CPAP. --reports last sleep study was a long while ago, likely 2011. Problem List: 1) HTN - Hypertension ([facility] [id number]) 2) Benign Prostatic Hypertrophy with Outflow Obstruction ([facility] [id number]) 3) Obesity ([facility] [id number]) 4) Posttraumatic stress disorder 5) Hyperlipidemia ([facility] [id number]) 6) Prediabetes ([facility] [id number]) Social History: TOBACCO: 1 cigar/mo. Quit cigarettes in 2001. Used to smoked 4ppd x30yrs. ALCOHOL: 1-2 beers 1-2x/mo. ILLICIT: MJ for sleep only -Marital: -Habits (diet, exercise): exercises 0 days/wk Medication Review: The essential med list for review which includes the patient's active VA prescriptions and if applicable, remote VA prescriptions, non-VA prescriptions, and discontinued VA prescriptions within the last 90 days and known allergies including local and remote allergies have been reviewed. Allergies:Patient has answered NKA Active and Recently Outpatient Medications (excluding Supplies): Active Outpatient Medications Status 1) FINASTERIDE 5MG TAB TAKE ONE TABLET BY MOUTH ONCE A DAY ACTIVE SWALLOW WHOLE, DO NOT CRUSH, SPLIT, OR CHEW. Indication: FOR BENIGN PROSTATIC HYPERPLASIA --NOT TAKING 2) HYDROCHLOROTHIAZIDE 12.5MG CAP TAKE ONE CAPSULE BY MOUTH ACTIVE ONCE A DAY Indication: FOR HIGH BLOOD PRESSURE --NOT TAKING 3) LISINOPRIL 40MG TAB TAKE ONE TABLET BY MOUTH ONCE A DAY ACTIVE Indication: FOR HIGH BLOOD PRESSURE --NOT TAKING 4) TAMSULOSIN HCL 0.4MG CAP TAKE TWO CAPSULES BY MOUTH EVERY ACTIVE EVENING APPROXIMATELY 30 MINUTES AFTER THE SAME MEAL EACH DAY Indication: FOR BENIGN PROSTATIC HYPERPLASIA Physical Exam VITALS (most recent, as listed in the electronic record): B/P: 140/89 (11/03/2024 10:34) Pulse: 73 (11/03/2024 10:34) Temperature: 97.5 F [36.4 C] (11/03/2024 10:34) Weight: 339.8 lb [154.13 kg] (11/03/2024 10:34) Height: 70 in [177.8 cm] (12/16/2023 09:44) BMI: 48.9 Pain: 10 (11/03/2024 10:34) (0-10 scale) General: WD, WN in NAD, pleasant affect Skin: no lesions or rashes noted. Neck: Supple, no cervical LALO, no thyromegaly or goiters palpated. Lungs: CTA bilat, no W/R/R Heart: RRR, nl S1/S2, no murmurs. Abdomen: obese Data Review: HGA1C 6.1 H % 12/16/2023 10:37 Lipid Panel: TRIGLYCERIDE 163 H mg/dL 12/16/2023 10:37 CHOLESTEROL 228 H mg/dL 12/16/2023 10:37 HDL(New) 46 mg/dL 12/16/2023 10:37 CALCULATED LDL 149 mg/dL 12/16/2023 10:37 CMP: SODIUM 135 L mEq/L 12/16/2023 10:37 POTASSIUM 4.3 mEq/L 12/16/2023 10:37 CHLORIDE 100 mEq/L 12/16/2023 10:37 UREA NITROGEN 21.5 mg/dL 12/16/2023 10:37 CREATININE 0.78 mg/dL 12/16/2023 10:37 CALCIUM 9.5 mg/dL 12/16/2023 10:37 PROTEIN 7.1 g/dL 12/16/2023 10:37 ALBUMIN 4.1 g/dL 12/16/2023 10:37 ALKALINE PHOSPHATASE 63 U/L 12/16/2023 10:37 ALT/SGPT 25 U/L 12/16/2023 10:37 AST/SGOT 22 U/L 12/16/2023 10:37 TOTAL BILIRUBIN 0.4 mg/dL 12/16/2023 10:37 CARBON DIOXIDE 24 mEq/L 12/16/2023 10:37 GLUCOSE 111 H mg/dL 12/16/2023 10:37 EGFR (CKD-EPI 2020) 100.8 12/16/2023 10:37 CBC: WBC 7.0 10*3/uL 12/16/2023 10:37 RBC 4.92 10*6/uL 12/16/2023 10:37 HGB 14.4 g/dL 12/16/2023 10:37 HCT 43.4 % 12/16/2023 10:37 MCV 88.2 fL 12/16/2023 10:37 MCH 29.3 pg 12/16/2023 10:37 MCHC 33.2 g/dL 12/16/2023 10:37 RDW 12.6 % 12/16/2023 10:37 PLT 323 10*3/uL 12/16/2023 10:37 MPV 9.5 fL 12/16/2023 10:37 NEUTROPHILS, AUTO % 71 % 12/16/2023 10:37 LYMPHOCYTES, AUTO % 20 % 12/16/2023 10:37 MONOCYTES, AUTO % 7 % 12/16/2023 10:37 EOSINOPHILS, AUTO % 1 % 12/16/2023 10:37 BASOPHILS, AUTO % 1 % 12/16/2023 10:37 NEUTROPHILS, ABSOLUTE 4.96 10*3/uL 12/16/2023 10:37 LYMPHOCYTES, ABSOLUTE 1.39 10*3/uL 12/16/2023 10:37 MONOCYTES, ABSOLUTE 0.51 10*3/uL 12/16/2023 10:37 EOSINOPHILS, ABSOLUTE 0.07 10*3/uL 12/16/2023 10:37 BASOPHILS, ABSOLUTE 0.04 10*3/uL 12/16/2023 10:37 PSA: PROST. SPECIFIC AG.(PB-STL) 0.797 ng/mL 12/16/2023 10:37 TSH: No TSH (1YR) EO data found UA: No URINALYSIS EO data found Vitamin D: No VITAMIN D EO data found Micral/Creat Profile: No data available Result: Follow-up Action: Assessment/Plan: 1) HTN: uncontrolled on today's reading. Goal <130/80. --just started losartan 50mg about 2 weeks ago, has f/u with nonVA PCP in a few weeks to review. --advised BP is high today and needs to be checking at home to help monitor treatment. --will order losartan 50mg through the [facility], if med dose changes he will provide update from nonVA PCP. 2) BPH/low T: seeing nonVA Urology and meds have changed as above. --discussed that in order to prescribe daily tadalafil and testosterone through the VA, certail criteria need to be met and we need notes from his Urologist. He will work on having these sent over. --reports BPH with LUTS sx have improved with tadalafil, continues to use tamsulosin 0.8mg daily. 3) Obesity: requests assistance with weight loss, he would like to start GLP1. --advised he needs to complete a CLI, given information for MOVE!. --once he has completed 4 classes, can refer to weight management pharmacotherapy clinic. --labs ordered. 4) RADHA: reports last sleep study likely around 2011, currently using CPAP w/o issue. --would like supplies through the VA. --no recent f/u with sleep med. --he would like to know about treatment options during travel. --sleep med consult placed for further eval/tx. 5) Bilateral knee pain: reported hx of OA, seeing nonVA Ortho. --plan for right knee replacement, needs to loose weight prior to surgery. --cont f/u with Ortho. 6) PTSD/anxiety: seeing nonVA psychiatry and now on duloxetine 90mg with good results. --would like med through the VA, med ordered. --melissa current treatment. 7) HLD: has tried rosuvstatin and did not tolerate it well. --denies re-trial of statin at this time. --lipids and CMP ordered. RTC: 1 year Time spent on date of visit including face to face time, data review, and chartin CLINICAL REMINDERS COMPLETED [facility] DIGITAL DIVIDE CAPABILITY REMINDER: Patient is interested in [facility] appointments. [facility] requirements have been communicated to the . The confirms understanding of those requirements and indicates the following VVC needs: confirms they have their own VVC capable equipment and/or request a 2nd video test call. The Provider and agree to the use of Telehealth and the [facility] confirms they have their own smart device (smart phone, tablet, laptop, or computer) with a camera AND audio. [facility] has been informed to call the Office of [facility] Health Desk([facility]) at [phone] Option 1 for a test call and that a VA staff member will also call. 'S RIGHT TO DECLINE STATEMENT understands they have the right to decline the use of Telehealth Technology at any time without adverse affects on their continued access to healthcare. HTN Assess for Elevated BP>=140/90 - N,P,PH: Other Reason: monitored and med adjusted by nonVA PCP, just started losartan 50mg 2 weeks ago. /jeannie/ MAYRA LOAIZA Staff Physician Signed: 11/03/2024 11:38 MAYRA LOAIZA [facility] Nov 03, 2024 10:42 AM NURSING NOTE: LOCAL TITLE: V15 PACT FACE TO FACE NOTE STL STANDARD TITLE: NURSING NOTE DATE OF NOTE: NOV 03, 2024@10:42 ENTRY DATE: NOV 03, 2024@10:43:03 AUTHOR: JB PRETTY COSIGNER: URGENCY: STATUS: COMPLETED Provider Visit: Patient Identifiers : Full Name Telephone Number Reason for visit: Established Follow-Up Mode of Arrival: Ambulatory Allergy Review: Patient has answered NKA Allergy list reviewed and remains current. Recent Vital Signs: Temperature: 97.5 F [36.4 C] (11/03/2024 10:34) Pulse: 73 (11/03/2024 10:34) Respiration: 18 (11/03/2024 10:34) B/P: 140/89 (11/03/2024 10:34) Pain: 10 (11/03/2024 10:34) Wt: 339.8 lb [154.13 kg] (11/03/2024 10:34) Ht: 70 in [177.8 cm] (12/16/2023 09:44) BMI: 48.9 POX: 95% (12/16/2023 09:44) Would you like to discuss any personal problem, family problem, alcohol use, drug use, or a mental or emotional illness? No Contact provided Primary Care phone number and encouraged to call if any questions or concerns. Review that after hours nurse line [phone] and emergency room are available 03/05 for patient use. Contact verbalized good understanding. Information forwarded to Dr Loaiza for intervention. RHS Screen - VS: RHS Screen Session Format: Face to Face Environmental Check Upon inquiry, the individual reports that the environment is safe to proceed. Informed Consent to Screen and Document The individual consents to proceed with screening. The individual consents to documentation of responses. PRIMARY SCREEN: In the past 12 months, how often did a current or former intimate partner (e.g., boyfriend, girlfriend, , , sexual partner): 1. Scream or curse at you Never 2. Insult or talk down to you Never 3. Threaten you with harm Never 4. Physically hurt you Never 5. Force or pressure you to have sexual contact against your will, or when you were unable to say no Never The HITS tool (items 1-4 above) is US copyright protected by Reggie Mckeon MD, and the user has full rights to use it throughout the AL system. PRIMARY SCREEN RESULT: The Primary Screen is NEGATIVE. The individual answered never to all forms of IPV above (i.e., answered never to all 5 items) The individual accepts education and/or resources: No EDUCATION: The individual indicated readiness to learn. Education offered during this session as noted above. The individual indicated understanding by asking relevant questions and making appropriate comments. No barriers to learning were observed or identified. /jeannie/ JB PRETTY REGISTERED NURSE Signed: 11/03/2024 10:48 JB PRETTY [facility]
--- OUTSIDE RECORDS SUMMARY | 2024-11-21 16:26 | XMS_ITS | Continuity of Care Document ---
Author Organization [facility] Address [address] [place] [address] [address] [place] [address] Phone Care Team Providers Care Floor Tiling Professional Name Role Phone Pabon OD, Smith Unavailable Unavailable Procedures Procedure Date Eye Exam, New Patient Refraction Advance Directives Directive Yes / No Effective Date File Name No Information Encounters Encounter Description Practice Location Reason(s) For Visit Diagnoses Date Provider Providers Copied on Encounter Merged with [facility], [address] [place] [address] [address], [place], [place], [id number], [place] tel:[phone] [facility] No Information 2-[address] Pabon OD Smith. [address] , [address], [place], [address], [place]. tel:[phone] Family History Family Member Type Diagnosis Age At Onset No Information Payers Payer name Insurance type Covered republican ID Authoriza tion(s) No Information Social History Type Description Quantity Date Captured Comments Sex Male Smoking Status No Information Chief Complaint And Reason For Visit No Information Reason For Referral Reason For Referral No Information History Of Present Illness Encounter Date Complaint History Of Prese nt Illness No Information Functional Status Date Functional Assessmen t No Information Instructions Date Instruction Additional Infor mation No Information Assessments Type Assessment Date No Information Patient Care Teams Name Effective Dates (start - stop) Status Members No Information
--- OUTSIDE RECORDS SUMMARY | 2024-11-21 16:26 | XMS_ITS | Clinical Summary ---
Author Organization [facility] Address [address] [place] [address] Care Team Providers Care Engrosser Name Role Phone Unavailable Primary Care Provider Unavailabl e Social History Tobacco Use Types Packs/Day Years Used Date Smoking Tobacco: Former Sex and Gender Information Value Date Recorded Sex Assigned at Not on file Legal Sex Male 8:06 PM CDT Gender Identity Not on file Sexual Orientation Not on file Last Filed Vital Signs Vital Sign Reading Time Taken Comments Blood Pressure 140/80 12/04/2014 2:40 PM CUSTOMER SERVICE DISPATCHER ret aken by Pulse 79 12/04/2014 2:40 PM CUSTOMER SERVICE DISPATCHER Temperature - - Respiratory Rate - - Oxygen Saturation - - Inhaled Oxygen Concentration - - Weight 180.1 kg (397 lb) 12/04/2014 2:40 PM CUSTOMER SERVICE DISPATCHER Height 180.3 cm (5' 11 ) 12/04/2014 2:40 PM CUSTOMER SERVICE DISPATCHER Body Mass Index 55.37 12/04/2014 2:40 PM CUSTOMER SERVICE DISPATCHER Plan of Treatment Health Maintenance Due Date Last Done Comments Colorectal Cancer Screening Colonoscopy (10 Years) 1960 Annual Physical 1964 Hepatitis C 1979 DTaP, Tdap and Td Vaccines ( 1 - Tdap) 1980 Zoster Vaccines (1 of 2) 2011 COVID-19 Vaccine ( - 2023-2 5 season) 2024 Influenza Adult (#1) 2024 RSV Immunization or 60+ Years (1 - 1-dose 75+ series) 2036 Meningococcal B Vaccine Aged Out No l onger eligible based on patient's age to complete this topic Meningococcal Vaccine Aged Out No gracia di eligible based on patient's age to complete this topic Pneumococcal Vaccine: Pediat rics (0 to 5 Years) and At-Risk Patients (6 to 64 Years) Aged Out No longer eligible b ased on patient's age to complete this topic RSV Immunizations Under 20 Months Aged Out No longer eligible based on patient's age to complete this topic
--- OUTSIDE RECORDS SUMMARY | 2024-11-21 16:26 | XMS_ITS ---
Author Organization [facility] [employer] [facility] Address [address] [facility] [address] [place] [address] Care Team Providers Care Head Start Teacher Name Role Phone ALFREDITO KEVIN PA-C Primary Care Provider Breanna Clarita Ahumada Unavailable [phone] REASON FOR VISIT Medical records follow up Social History Sex Assigned At : Social History Observation Description Sex Assigned At Male Encounters Encounter Location Date Provider Diagnosis [facility] [employer] [place] [id number] [facility] [address] [place] [address] 09/11/2024 Clarita Fisher Plan Of Treatment Next Appt Details Provider Name:Clarita Fisher , 11/27/2024 09:00:00 AM, [address], [facility] [address], [place], [address], Progress Notes * Dariel DOWNS EDOB:[birth year] (64 yo M)Acc No.[id number]:09/11/2024 Patient: Dariel CARREON :1960 A ge:64 Y S ex:Male Address:[address] [place], [address] * true * Date: Generated for Printi ng/Faxing/eTransmitting on: 0 11/21/2024 04:25 PM [employer]
--- OUTSIDE RECORDS SUMMARY | 2024-11-21 16:26 | XMS_ITS ---
Author Organization [facility] Address [address] [facility] [address] [facility] [address] [place] [address] Care Team Providers Care Restaurant Line Server Name Role Phone ALFREDITO KEVIN PA-C Primary Care Provider Clarita Billings Unavailable [phone] REASON FOR VISIT RE:Medical records follow up Social History Sex Assigned At : Social History Observation Description Sex Assigned At Male Encounters Encounter Location Date Provider Diagnosis [facility] [place] [id number] [facility] [address] [facility] [address] [place] [address] 09/11/2024 Clarita Fisher Plan Of Treatment Next Appt Details Provider Name:Clarita Fisher , 11/27/2024 09:00:00 AM, [address], [facility] [address], [place], [address], Progress Notes * Dariel DOWNS EDOB:[birth year] (64 yo M)Acc No.[id number]:09/11/2024 Patient: Dariel CARREON :1960 A ge:64 Y S ex:Male Address:[address], [place], [address] * true * Date: Generated for Hectori ng/Faallig/eTransmitting on: 0 11/21/2024 04:25 PM RN OBGYN
[2024-11-21 16:36] LABS: NT Pro B Type Natriuretic Pept 492 pg/mL (19.9-100)
[2024-11-21 16:49] LABS: Influenza A QL RT-PCR Negative (Negative); Influenza B QL RT-PCR Negative (Negative); RSV RNA, RT-PCR Negative (Negative); SARS-CoV-2 RNA PCR Negative (Negative)
[2024-11-21] MEDS: ONDANSETRON HCL ODT 4 MG TABLET PO (18:10)
[2024-11-21] MEDS: ACETAMINOPHEN 500 MG TABLET 1000 MG PO (18:10)
[2024-11-21 18:38] LABS: D Dimer 0.88 ug/mL (<0.48)
--- NOTE | 2024-11-21 19:09 | ECG_ITS ---
Test Date: 2024-11-21 19:19:42 Measurements Intervals [place] Rate: 86 P: 22 [place]: 163 QRS: -36 QRSD: 101 T: 61 QT: 359 QTc: 430 Interpretive Statements SINUS RHYTHM LEFT AXIS DEVIATION INCOMPLETE RIGHT BUNDLE BRANCH BLOCK DELAYED PRECORDIAL R/S TRANSITION BASELINE ARTIFACT- I, II, III, AVR, AVL, AVF, V1 BORDERLINE ECG Compared to ECG 11/21/2024 15:58:46 HEART RATE HAS DECREASED Electronically Signed On 11-21-2024 20:01:51 [employer]USH [employer]KER by Neptali Perez D.O.
[2024-11-21] MEDS: SODIUM CHLORIDE 0.9% IV 500 ML 999 ML IV CONT (19:13)
--- NOTE | 2024-11-21 19:27 | PC.NURSE ---
out of 2gm Rocephin in both ED Pyxis, called pharmacy to request to tubed up.
[2024-11-21] MEDS: cefTRIAXone 2 GM/NS 100 ML 2 GM/100 ML BAG IVPB (19:33)
[2024-11-21 19:43] LABS: Troponin I 0.019 ng/mL (0.000-0.034)
[2024-11-21] MEDS: DOXYCYCLINE 100 MG/NS 100 ML 100 MG/100 ML BAG IVPB (20:07)
== END 2024-11-21 21:10 | disposition home or self-care (01) ==
PROVIDERS: Emergency Medicine; Physician Assistant; Emergency Provider Student in an Organized Health Care Education/Training Program; PCP Family Medicine
DX: J18.9 Pneumonia, unspecified organism (principal); R07.9 Chest pain, unspecified; Z20.822 Contact with and (suspected) exposure to COVID-19; F17.210 Nicotine dependence, cigarettes, uncomplicated; F41.9 Anxiety disorder, unspecified; N40.0 Benign prostatic hyperplasia without lower urinary tract symptoms; E78.5 Hyperlipidemia, unspecified; I10 Essential (primary) hypertension
CPT/HCPCS: 36415; 71046; 80053; 83690; 83880; 84484; 85025; 85380; 85610; 85730; 87637; 93005; 96365; 96367; 99284; A9270; J0696; J7040